=== PATIENT | male | born 1985 | race Caucasian/White ===

== ENCOUNTER 2022-02-09 15:26 | Inpatient (IN) | payer SELFPAY ==
[~2022-02-09 15:26] MED LIST: Iopamidol 370 76% 50 ML VIAL FS ONE
[2022-02-09] MEDS ORDERED: Succinylcholine 200 MG/10 ml SYRINGE FS ONE (15:33)
[2022-02-09] MEDS ORDERED: Propofol 1,000 MG/100 ML VIAL IV ONE (15:39)
[2022-02-09 15:45] LABS: #Lymphocytes 0.3 thou/uL (1.20-3.40); #Monocytes 0.3 thou/uL (0.11-0.59); #Neutrophils 1.3 thou/uL (1.40-6.50); %Eosinophils 0.2 % (0.0-10.0); %Lymphocytes 14.5 % (21.0-51.0); %Monocytes 14.4 % (0.0-10.0); %Neutrophils 70.9 % (42.0-75.0); Hemoglobin 14.6 g/dL (14.0-18.0); Mean Corpuscular HGB CONC 30.8 g/dL (32.0-36.0); Mean Corpuscular Hemoglobin 30.9 pg (27.0-31.0); Platelet Count 457 thou/uL (130-400); RBC Distribution Width 12.7 % (11.5-14.5); Red Blood Cell (RBC) Count 4.73 mill/uL (4.70-6.10); White Blood Cell (WBC) Count 1.9 thou/uL (4.8-10.8)
[2022-02-09] MEDS ORDERED: Norepinephrine 8 MG/0.9% NS 250 ML ONE (15:49)
[2022-02-09 15:53] LABS: INR-International Normal Ratio 1.2; PTT 40.2 sec (22.9-36.1); Prothrombin Time 15.6 sec (12.0-14.7)
[2022-02-09] MEDS ORDERED: Midazolam HCl 2 mg/2 ml Vial ONE (15:58)
[2022-02-09 16:04] LABS: ALT (SGPT) 10 U/L (8-55); AST (SGOT) 15 U/L (5-34); Albumin 2.3 g/dL (3.5-5.0); Alkaline Phosphatase 99 U/L (40-110); Anion Gap 17 mmol/L (10-20); BUN (Urea Nitrogen) 17 mg/dL (8.9-20.6); Bilirubin, Total 0.7 mg/dL (0.2-1.2); Calc. Creatinine Clearance 0 mL/min (70-130); Calcium 7.8 mg/dL (7.8-10.44); Carbon Dioxide 15 mmol/L (22-29); Chloride 103 mmol/L (98-107); Globulin 3.8 g/dL (2.4-3.5); Glucose 166 mg/dL (70-105); Potassium 3.9 mmol/L (3.5-5.1); Protein, Total 6.1 g/dL (6.0-8.3); Sodium 131 mmol/L (136-145)
[2022-02-09 16:06] LABS: Actual Bicarbonate (HCO3a) 20.5 mEq/L (22-28); Analyzer IN Cardio ER; Base Excess (BEa) -9.8 mEq/L (-2.0 to +3.0); Calcium, Ionized (arterial) 1.13 mmol/L (1.12-1.30); Carboxyhemoglobin (COHb) 0.8 gm% (0.0-3.0); Hemoglobin (Hb) 14.4 g/dL (14.0-18.0); Potassium - ABG Lab 3.95 mmol/L (3.70-5.30)
[2022-02-09 16:07] LABS: CO2 Tension 64.6 mmHg (35.0-45.0); pH, Arterial 7.12 (7.35-7.45)
[2022-02-09 16:08] LABS: Puncture Site RRA
[2022-02-09 16:14] LABS: MDiff Complete? YES; Platelet Morphology Comment Appears Increased; Polychromasia SLIGHT = 2-3 cells (100X) (0-2/hpf); Reflex for Review?? YES
[2022-02-09] MEDS ORDERED: Hydrocortisone Sod Succ/PF 100 mg/2 ml Vial ONE (16:47)
[2022-02-09] MEDS ORDERED: Midazolam HCl 5 mg/ml Vial ONE (17:03)
[2022-02-09] MEDS ORDERED: Ventilator Sedation Protocol 1 EACH FS SCH (17:15)
[2022-02-09] MEDS ORDERED: Propofol BOLUS 1,000 MG/100 ML VIAL IV PRN (17:30)
[2022-02-09] MEDS ORDERED: DISCONTINUE PREVIOUS NARCOTIC PAIN MEDICATIONS AND BENZODIAZEPINES FS SCH (17:30)
[2022-02-09] MEDS ORDERED: Piperacillin/Tazobactam 3.375 GM in Sodium Chloride 0.9% 100 ML IVPB SCH ×2 (17:30→18:00)
[2022-02-09] MEDS ORDERED: Fentanyl BOLUS 250 ML IVPB PRN (17:30)
[2022-02-09 17:39] LABS: Actual Bicarbonate (HCO3a) 18.1 mEq/L (22-28); Base Excess (BEa) -11.6 mEq/L (-2.0 to +3.0); CO2 Tension 57.4 mmHg (35.0-45.0); Calcium, Ionized (arterial) 1.07 mmol/L (1.12-1.30); Carboxyhemoglobin (COHb) 1.2 gm% (0.0-3.0); Hemoglobin (Hb) 12.8 g/dL (14.0-18.0); Potassium - ABG Lab 3.44 mmol/L (3.70-5.30)
[2022-02-09 17:41] LABS: Puncture Site LRA; pH, Arterial 7.12 (7.35-7.45)
[2022-02-09] MEDS: Sodium Bicarbonate 150 MEQ in Dextrose 5% in Water 1,000 ML IV SCH (17:45)
[2022-02-09 19:33] LABS: Lactic Acid 3.1 mmol/L (0.5-2.2)
[2022-02-09] MEDS: Famotidine/PF 20 mg/2ml Vial SLOW IVP SCH (20:43)
[2022-02-09] MEDS: Vancomycin HCl 1.5 GM in Sodium Chloride 0.9% 250 ML 300 ML IVPB SCH (20:43)
[2022-02-09] MEDS: Piperacillin/Tazobactam 3.375 GM in Sodium Chloride 0.9% 100 ML IVPB SCH (23:32)
[2022-02-09] MEDS: Hydrocortisone Sod Succ/PF 100 mg/2 ml Vial IVP SCH (23:32)
[2022-02-09] MEDS: Norepinephrine 8 MG/0.9% NS 250 ML IVPB PRN (23:32)
[2022-02-10] MEDS: Insulin Regular 300 UNITS/3 ML VIAL SC PRN (00:16)
[2022-02-10] MEDS: fentaNYL Citrate-0.9 % NaCl/PF 100 ML IVPB SCH ×2 (01:25→18:12)
[2022-02-10] MEDS: Sodium Bicarbonate 150 MEQ in Dextrose 5% in Water 1,000 ML IV SCH ×2 (03:42→13:27)
[2022-02-10 04:51] LABS: ALT (SGPT) 14 U/L (8-55); AST (SGOT) 26 U/L (5-34); Alkaline Phosphatase 70 U/L (40-110); Anion Gap 15 mmol/L (10-20); BUN (Urea Nitrogen) 15 mg/dL (8.9-20.6); Bilirubin, Total 0.4 mg/dL (0.2-1.2); Calc. Creatinine Clearance 126 mL/min (70-130); Calcium 7.9 mg/dL (7.8-10.44); Carbon Dioxide 24 mmol/L (22-29); Chloride 102 mmol/L (98-107); Globulin 3.2 g/dL (2.4-3.5); Glucose 182 mg/dL (70-105); Potassium 3.8 mmol/L (3.5-5.1); Protein, Total 5.2 g/dL (6.0-8.3); Sodium 137 mmol/L (136-145)
[2022-02-10] MEDS: Hydrocortisone Sod Succ/PF 100 mg/2 ml Vial IVP SCH ×4 (05:37→22:24)
[2022-02-10] MEDS: Piperacillin/Tazobactam 3.375 GM in Sodium Chloride 0.9% 100 ML IVPB SCH ×3 (05:37→22:23)
[2022-02-10 05:45] LABS: Band 69 % (5-11); Hemoglobin 12.6 g/dL (14.0-18.0); Hypochromia SLIGHT = 6-15 cells (100X) (0-5/hpf); Lymphocytes 8 % (21-51); MDiff Complete? YES; Macrocytosis MODERATE=16-30 cells (100X) (0-5/hpf); Mean Corpuscular HGB CONC 30.8 g/dL (32.0-36.0); Mean Corpuscular Hemoglobin 31.1 pg (27.0-31.0); Mean Platelet Volume 7.7 fL (7.4-10.4); Metamyelocyte 12 % (0-0); Monocytes 2 % (0-10); Myelocyte 7 % (0-0); Neutrophil 1 % (42-75); Platelet Count 178 thou/uL (130-400); Platelet Morphology Comment Appears Adequate; Polychromasia SLIGHT = 2-3 cells (100X) (0-2/hpf); Promyelocytes 1 % (0-0); RBC Distribution Width 12.6 % (11.5-14.5); Red Blood Cell (RBC) Count 4.06 mill/uL (4.70-6.10); Reflex for Review?? NO; Target Cells SLIGHT = 2-5 cells (100X) (0-1/hpf)
[2022-02-10] MEDS: Propofol 1,000 MG/100 ML VIAL IV PRN ×2 (05:46→18:16)
[2022-02-10] MEDS: Norepinephrine 8 MG/0.9% NS 250 ML IVPB PRN (05:46)
[2022-02-10 07:27] LABS: Actual Bicarbonate (HCO3a) 29.2 mEq/L (22-28); Base Excess (BEa) 0.4 mEq/L (-2.0 to +3.0); Calcium, Ionized (arterial) 1.12 mmol/L (1.12-1.30); Carboxyhemoglobin (COHb) 0.9 gm% (0.0-3.0); Hemoglobin (Hb) 13.1 g/dL (14.0-18.0); Potassium - ABG Lab 3.85 mmol/L (3.70-5.30)
[2022-02-10 07:28] LABS: pH, Arterial 7.25 (7.35-7.45)
[2022-02-10 07:29] LABS: ALV-art Gradient 541.725 mmHg (0-20); CO2 Tension 67.7 mmHg (35.0-45.0); Puncture Site Arterial Line
[2022-02-10] MEDS ORDERED: Enoxaparin Sodium 40 MG/0.4 ML SYRINGE SC SCH (09:00)
[2022-02-10] MEDS ORDERED: fentaNYL Citrate/PF 100 MCG/2 ML SYRINGE ONE (09:15)
[2022-02-10] MEDS ORDERED: Bupivacaine PF 0.5% 30 ML VIAL ONE (09:25)
[2022-02-10] MEDS ORDERED: EPINEPHrine 1 MG/ML AMP ONE (09:25)
[2022-02-10] MEDS: Famotidine/PF 20 mg/2ml Vial SLOW IVP SCH ×2 (09:45→20:20)
[2022-02-10] MEDS: Vancomycin HCl 1.5 GM in Sodium Chloride 0.9% 250 ML 300 ML IVPB SCH ×2 (10:07→22:19)
[2022-02-10] MEDS ORDERED: Rocuronium Bromide 10 MG/ML (10ML VIAL) ONE (10:16)
[2022-02-10] MEDS ORDERED: PROPOFOL 200 MG/20 ML VIAL ONE (10:16)
[2022-02-10] MEDS ORDERED: Lidocaine 1% PF 5 ML VIAL ONE (10:16)
[2022-02-10 12:06] LABS: Actual Bicarbonate (HCO3a) 28.1 mEq/L (22-28); Base Excess (BEa) -1.7 mEq/L (-2.0 to +3.0); Calcium, Ionized (arterial) 1.06 mmol/L (1.12-1.30); Carboxyhemoglobin (COHb) 1.3 gm% (0.0-3.0); Potassium - ABG Lab 3.83 mmol/L (3.70-5.30)
[2022-02-10 12:08] LABS: CO2 Tension 74.8 mmHg (35.0-45.0); O2 Tension (PaO2), arterial 58.8 mmHg (80.0-100.0); Puncture Site Arterial Line; pH, Arterial 7.19 (7.35-7.45)
[2022-02-10 14:11] LABS: Amphetamine Not Detected (NotDetected); Barbiturates Screen Not Detected (NotDetected); Benzodiazepine Screen Not Detected (NotDetected); Cocaine Metabolite Screen Not Detected (NotDetected); Methadone Not Detected (NotDetected); Methamphetamine Not Detected (NotDetected); Opiate Screen Not Detected (NotDetected); Oxycodone Screen Not Detected (NotDetected); Phencyclidine (PCP) Not Detected (NotDetected); THC/Cannabinoid Screen Detected (NotDetected); Tricyclic Screen Not Detected (NotDetected)
[2022-02-10] MEDS ORDERED: Lactated Ringer's 500 ML IV SCH (16:30)
[2022-02-11] MEDS: Insulin Regular 300 UNITS/3 ML VIAL SC PRN ×4 (00:19→22:17)
[2022-02-11] MEDS: Norepinephrine 8 MG/0.9% NS 250 ML IVPB PRN (02:07)
[2022-02-11] MEDS: Sodium Bicarbonate 150 MEQ in Dextrose 5% in Water 1,000 ML IV SCH (02:33)
[2022-02-11 04:46] LABS: ALT (SGPT) 26 U/L (8-55); AST (SGOT) 45 U/L (5-34); Albumin 1.7 g/dL (3.5-5.0); Alkaline Phosphatase 66 U/L (40-110); Anion Gap 15 mmol/L (10-20); BUN (Urea Nitrogen) 17 mg/dL (8.9-20.6); Bilirubin, Total 0.3 mg/dL (0.2-1.2); Calc. Creatinine Clearance 124 mL/min (70-130); Calcium 7.3 mg/dL (7.8-10.44); Carbon Dioxide 29 mmol/L (22-29); Chloride 97 mmol/L (98-107); Globulin 2.9 g/dL (2.4-3.5); Glucose 253 mg/dL (70-105); Potassium 3.7 mmol/L (3.5-5.1); Protein, Total 4.6 g/dL (6.0-8.3); Sodium 137 mmol/L (136-145)
[2022-02-11 05:11] LABS: Band 60 % (5-11); MDiff Complete? YES; Mean Corpuscular HGB CONC 33.1 g/dL (32.0-36.0); Mean Corpuscular Hemoglobin 33.4 pg (27.0-31.0); Mean Platelet Volume 8.7 fL (7.4-10.4); Metamyelocyte 2 % (0-0); Monocytes 6 % (0-10); Neutrophil 31 % (42-75); Nucleated RBC 1 % (0); Platelet Count 48 thou/uL (130-400); Platelet Morphology Comment Appears Decreased; RBC Distribution Width 12.8 % (11.5-14.5); RBC Morphology Normal; Reactive Lymphocytes 1 % (0-10); White Blood Cell (WBC) Count 15.5 thou/uL (4.8-10.8)
[2022-02-11] MEDS: Propofol 1,000 MG/100 ML VIAL IV PRN ×2 (05:49→16:05)
[2022-02-11] MEDS: Hydrocortisone Sod Succ/PF 100 mg/2 ml Vial IVP SCH ×4 (05:49→22:15)
[2022-02-11] MEDS: Piperacillin/Tazobactam 3.375 GM in Sodium Chloride 0.9% 100 ML IVPB SCH ×3 (05:50→22:01)
[2022-02-11 07:06] LABS: Actual Bicarbonate (HCO3a) 31.2 mEq/L (22-28); Base Excess (BEa) 7.4 mEq/L (-2.0 to +3.0); CO2 Tension 40.7 mmHg (35.0-45.0); Calcium, Ionized (arterial) 0.98 mmol/L (1.12-1.30); Carboxyhemoglobin (COHb) 0.5 gm% (0.0-3.0); Hemoglobin (Hb) 10.1 g/dL (14.0-18.0); Potassium - ABG Lab 3.51 mmol/L (3.70-5.30)
[2022-02-11 07:09] LABS: ALV-art Gradient 300.925 mmHg (0-20); Puncture Site Arterial Line
[2022-02-11] MEDS: fentaNYL Citrate-0.9 % NaCl/PF 100 ML IVPB SCH (08:13)
[2022-02-11 08:52] LABS: Vancomycin, Trough 14.5 ug/mL
[2022-02-11] MEDS: Insulin Glargine 30 UNITS/0.3 ML VIAL SC SCH (09:15)
[2022-02-11] MEDS: Vancomycin HCl 1.5 GM in Sodium Chloride 0.9% 250 ML 300 ML IVPB SCH (09:15)
[2022-02-11] MEDS: Famotidine/PF 20 mg/2ml Vial SLOW IVP SCH ×2 (09:15→21:32)
[2022-02-11 10:08] LABS: Magnesium 2.2 mg/dL (1.6-2.6)
[2022-02-11] MEDS: Vancomycin 1.5 GRAM/300 ML BAG 1.5 GM in Premix Bag 1 BAG IVPB SCH (21:36)
[2022-02-11] MEDS: Lorazepam 2 MG/ML VIAL SLOW IVP PRN (22:05)
[2022-02-12] MEDS: fentaNYL Citrate-0.9 % NaCl/PF 100 ML IVPB SCH ×2 (00:14→16:41)
[2022-02-12 04:20] LABS: Mean Corpuscular HGB CONC 31.6 g/dL (32.0-36.0); Mean Corpuscular Hemoglobin 31.6 pg (27.0-31.0); Mean Platelet Volume 9.2 fL (7.4-10.4); Platelet Count 37 thou/uL (130-400); RBC Distribution Width 12.7 % (11.5-14.5); Red Blood Cell (RBC) Count 2.86 mill/uL (4.70-6.10)
[2022-02-12 04:39] LABS: ALT (SGPT) 30 U/L (8-55); AST (SGOT) 58 U/L (5-34); Albumin 1.9 g/dL (3.5-5.0); Alkaline Phosphatase 103 U/L (40-110); Anion Gap 11 mmol/L (10-20); BUN (Urea Nitrogen) 34 mg/dL (8.9-20.6); Bilirubin, Total 0.4 mg/dL (0.2-1.2); Calc. Creatinine Clearance 131 mL/min (70-130); Calcium 7.7 mg/dL (7.8-10.44); Carbon Dioxide 34 mmol/L (22-29); Chloride 98 mmol/L (98-107); Globulin 2.9 g/dL (2.4-3.5); Glucose 181 mg/dL (70-105); Potassium 3.6 mmol/L (3.5-5.1); Protein, Total 4.8 g/dL (6.0-8.3); Sodium 139 mmol/L (136-145)
[2022-02-12 05:07] LABS: Band 58 % (5-11); Lymphocytes 3 % (21-51); MDiff Complete? YES; Monocytes 1 % (0-10); Myelocyte 1 % (0-0); Neutrophil 37 % (42-75); Platelet Morphology Comment Appears Decreased
[2022-02-12] MEDS: Piperacillin/Tazobactam 3.375 GM in Sodium Chloride 0.9% 100 ML IVPB SCH ×3 (05:59→21:59)
[2022-02-12] MEDS: Hydrocortisone Sod Succ/PF 100 mg/2 ml Vial IVP SCH ×3 (05:59→17:45)
[2022-02-12] MEDS: Insulin Regular 300 UNITS/3 ML VIAL SC PRN ×2 (05:59→16:24)
[2022-02-12] MEDS: Propofol 1,000 MG/100 ML VIAL IV PRN ×2 (06:10→09:45)
[2022-02-12 07:27] LABS: Actual Bicarbonate (HCO3a) 33.1 mEq/L (22-28); Base Excess (BEa) 8.4 mEq/L (-2.0 to +3.0); CO2 Tension 47.1 mmHg (35.0-45.0); Calcium, Ionized (arterial) 1.02 mmol/L (1.12-1.30); Carboxyhemoglobin (COHb) 0.3 gm% (0.0-3.0); O2 Tension (PaO2), arterial 76.1 mmHg (80.0-100.0); Potassium - ABG Lab 3.16 mmol/L (3.70-5.30); pH, Arterial 7.47 (7.35-7.45)
[2022-02-12 07:33] LABS: ALV-art Gradient 150.225 mmHg (0-20); Puncture Site Arterial Line
[2022-02-12] MEDS: Lorazepam 2 MG/ML VIAL SLOW IVP PRN (09:45)
[2022-02-12] MEDS: Famotidine/PF 20 mg/2ml Vial SLOW IVP SCH (09:53)
[2022-02-12] MEDS: Insulin Glargine 30 UNITS/0.3 ML VIAL SC SCH (09:53)
[2022-02-12] MEDS: Vancomycin 1.5 GRAM/300 ML BAG 1.5 GM in Premix Bag 1 BAG IVPB SCH ×2 (10:31→23:05)
[2022-02-12] MEDS: Sucralfate 1 GM/10 ML UDCUP PER TUBE SCH (17:46)
[2022-02-12 21:13] LABS: Vancomycin, Trough 48.5 ug/mL
[2022-02-12] MEDS ORDERED: Vancomycin 1.5 GRAM/300 ML BAG 1.5 GM in Premix Bag 1 BAG IVPB SCH (21:45)
[2022-02-12 22:28] LABS: Vancomycin, Trough 36.6 ug/mL
[2022-02-13] MEDS: Hydrocortisone Sod Succ/PF 100 mg/2 ml Vial IVP SCH ×3 (00:01→10:35)
[2022-02-13] MEDS: Sucralfate 1 GM/10 ML UDCUP PER TUBE SCH ×5 (00:02→23:46)
[2022-02-13 02:41] LABS: Vancomycin, Random 24.7 ug/mL (See Comment)
[2022-02-13 04:54] LABS: ALT (SGPT) 30 U/L (8-55); AST (SGOT) 45 U/L (5-34); Alkaline Phosphatase 144 U/L (40-110); Anion Gap 12 mmol/L (10-20); BUN (Urea Nitrogen) 30 mg/dL (8.9-20.6); Bilirubin, Total 0.3 mg/dL (0.2-1.2); Calc. Creatinine Clearance 132 mL/min (70-130); Calcium 7.7 mg/dL (7.8-10.44); Carbon Dioxide 34 mmol/L (22-29); Chloride 100 mmol/L (98-107); Glucose 152 mg/dL (70-105); Potassium 3.6 mmol/L (3.5-5.1); Sodium 142 mmol/L (136-145)
[2022-02-13] MEDS: fentaNYL Citrate-0.9 % NaCl/PF 100 ML IVPB SCH ×2 (04:55→16:28)
[2022-02-13] MEDS: Piperacillin/Tazobactam 3.375 GM in Sodium Chloride 0.9% 100 ML IVPB SCH ×3 (05:03→22:02)
[2022-02-13] MEDS: Insulin Regular 300 UNITS/3 ML VIAL SC PRN ×2 (05:23→16:25)
[2022-02-13 05:59] LABS: Hemoglobin 8.7 g/dL (14.0-18.0); Mean Corpuscular HGB CONC 31.5 g/dL (32.0-36.0); Mean Corpuscular Hemoglobin 31.2 pg (27.0-31.0); Mean Platelet Volume 9.9 fL (7.4-10.4); Platelet Count 47 thou/uL (130-400); RBC Distribution Width 12.8 % (11.5-14.5); Red Blood Cell (RBC) Count 2.78 mill/uL (4.70-6.10); White Blood Cell (WBC) Count 13.1 thou/uL (4.8-10.8)
[2022-02-13 06:04] LABS: Band 21 % (5-11); Lymphocytes 8 % (21-51); MDiff Complete? YES; Monocytes 4 % (0-10); Neutrophil 67 % (42-75); Platelet Morphology Comment Appears Decreased
[2022-02-13 07:21] LABS: Base Excess (BEa) 10.9 mEq/L (-2.0 to +3.0); CO2 Tension 45.2 mmHg (35.0-45.0); Calcium, Ionized (arterial) 1.13 mmol/L (1.12-1.30); Carboxyhemoglobin (COHb) 0.4 gm% (0.0-3.0); Hemoglobin (Hb) 8.6 g/dL (14.0-18.0); O2 Tension (PaO2), arterial 62.7 mmHg (80.0-100.0); Potassium - ABG Lab 3.19 mmol/L (3.70-5.30); pH, Arterial 7.51 (7.35-7.45)
[2022-02-13 07:36] LABS: Puncture Site RRA
[2022-02-13] MEDS: Insulin Glargine 30 UNITS/0.3 ML VIAL SC SCH (09:57)
[2022-02-13] MEDS: Lorazepam 2 MG/ML VIAL SLOW IVP PRN ×3 (10:24→18:05)
[2022-02-13 12:18] LABS: Vancomycin, Random 12.9 ug/mL (See Comment)
[2022-02-13] MEDS ORDERED: VANCOMYCIN 1.25 GM/250 ML BAG 1.25 GM in Premix Bag 1 BAG IVPB SCH (13:00)
[2022-02-13 14:13] LABS: Heparin-Induced Ab (HITA) 0.07 OD (0.000-0.400)
[2022-02-13] MEDS: Propofol 1,000 MG/100 ML VIAL IV PRN ×2 (14:13→22:32)
[2022-02-14] MEDS ORDERED: VANCOMYCIN 1.25 GM/250 ML BAG 1.25 GM in Premix Bag 1 BAG IVPB SCH (01:00)
[2022-02-14] MEDS: Lorazepam 2 MG/ML VIAL SLOW IVP PRN ×3 (02:41→18:33)
[2022-02-14] MEDS: fentaNYL Citrate-0.9 % NaCl/PF 100 ML IVPB SCH ×2 (03:15→16:56)
[2022-02-14] MEDS: Piperacillin/Tazobactam 3.375 GM in Sodium Chloride 0.9% 100 ML IVPB SCH ×3 (04:57→21:06)
[2022-02-14] MEDS: Sucralfate 1 GM/10 ML UDCUP PER TUBE SCH ×3 (04:58→18:03)
[2022-02-14] MEDS: Vancomycin 1 GM in Premix Bag 1 BAG IVPB SCH ×2 (04:58→16:45)
[2022-02-14 05:27] LABS: Mean Corpuscular HGB CONC 32.2 g/dL (32.0-36.0); Mean Corpuscular Hemoglobin 31.8 pg (27.0-31.0); Mean Corpuscular Volume 98.8 fL (78.0-98.0); Mean Platelet Volume 9.8 fL (7.4-10.4); Platelet Count 96 thou/uL (130-400); Red Blood Cell (RBC) Count 2.83 mill/uL (4.70-6.10); White Blood Cell (WBC) Count 17.1 thou/uL (4.8-10.8)
[2022-02-14 05:44] LABS: ALT (SGPT) 29 U/L (8-55); AST (SGOT) 43 U/L (5-34); Albumin 2.2 g/dL (3.5-5.0); Alkaline Phosphatase 171 U/L (40-110); Anion Gap 11 mmol/L (10-20); BUN (Urea Nitrogen) 26 mg/dL (8.9-20.6); Bilirubin, Total 0.3 mg/dL (0.2-1.2); Calc. Creatinine Clearance 131 mL/min (70-130); Carbon Dioxide 35 mmol/L (22-29); Chloride 103 mmol/L (98-107); Glucose 105 mg/dL (70-105); Protein, Total 5.2 g/dL (6.0-8.3); Sodium 146 mmol/L (136-145)
[2022-02-14 06:10] LABS: Band 15 % (5-11); Lymphocytes 10 % (21-51); MDiff Complete? YES; Metamyelocyte 2 % (0-0); Monocytes 4 % (0-10); Myelocyte 1 % (0-0); Neutrophil 68 % (42-75); Platelet Morphology Comment Appears Decreased
[2022-02-14 06:13] LABS: Potassium 2.6 mmol/L (3.5-5.1)
[2022-02-14 07:22] LABS: Actual Bicarbonate (HCO3a) 32.9 mEq/L (22-28); CO2 Tension 46.1 mmHg (35.0-45.0); Calcium, Ionized (arterial) 1.16 mmol/L (1.12-1.30); Hemoglobin (Hb) 14.5 g/dL (14.0-18.0); Potassium - ABG Lab 2.68 mmol/L (3.70-5.30); pH, Arterial 7.47 (7.35-7.45)
[2022-02-14 07:24] LABS: ALV-art Gradient 170.575 mmHg (0-20); Puncture Site RRA
[2022-02-14] MEDS: Propofol 1,000 MG/100 ML VIAL IV PRN ×2 (08:18→16:45)
[2022-02-14] MEDS ORDERED: Potassium Chloride 40 MEQ in Premix Bag 1 BAG IVPB SCH ×2 (09:15→18:30)
[2022-02-14] MEDS: Insulin Glargine 30 UNITS/0.3 ML VIAL SC SCH (09:56)
[2022-02-14 17:55] LABS: Potassium 2.9 mmol/L (3.5-5.1)
[2022-02-15] MEDS: Sucralfate 1 GM/10 ML UDCUP PER TUBE SCH ×4 (00:24→17:28)
[2022-02-15] MEDS: Propofol 1,000 MG/100 ML VIAL IV PRN ×4 (01:12→22:32)
[2022-02-15 05:00] LABS: ALT (SGPT) 29 U/L (8-55); AST (SGOT) 35 U/L (5-34); Albumin 2.2 g/dL (3.5-5.0); Alkaline Phosphatase 135 U/L (40-110); Anion Gap 11 mmol/L (10-20); BUN (Urea Nitrogen) 19 mg/dL (8.9-20.6); Bilirubin, Total 0.4 mg/dL (0.2-1.2); Calc. Creatinine Clearance 133 mL/min (70-130); Calcium 8.3 mg/dL (7.8-10.44); Carbon Dioxide 34 mmol/L (22-29); Chloride 102 mmol/L (98-107); Glucose 99 mg/dL (70-105); Protein, Total 5.2 g/dL (6.0-8.3); Sodium 144 mmol/L (136-145); Vancomycin, Trough 14.4 ug/mL
[2022-02-15] MEDS: Vancomycin 1 GM in Premix Bag 1 BAG IVPB SCH ×2 (05:13→17:28)
[2022-02-15] MEDS: Piperacillin/Tazobactam 3.375 GM in Sodium Chloride 0.9% 100 ML IVPB SCH ×3 (05:13→22:13)
[2022-02-15] MEDS: fentaNYL Citrate-0.9 % NaCl/PF 100 ML IVPB SCH ×2 (05:42→17:29)
[2022-02-15 06:38] LABS: Band 17 % (5-11); Hemoglobin 9.5 g/dL (14.0-18.0); Lymphocytes 9 % (21-51); MDiff Complete? YES; Mean Corpuscular HGB CONC 32.5 g/dL (32.0-36.0); Mean Corpuscular Hemoglobin 32.1 pg (27.0-31.0); Mean Corpuscular Volume 98.9 fL (78.0-98.0); Mean Platelet Volume 9.6 fL (7.4-10.4); Myelocyte 3 % (0-0); Neutrophil 71 % (42-75); Platelet Count 155 thou/uL (130-400); RBC Distribution Width 13.1 % (11.5-14.5); Red Blood Cell (RBC) Count 2.95 mill/uL (4.70-6.10); White Blood Cell (WBC) Count 20.5 thou/uL (4.8-10.8)
[2022-02-15 07:02] LABS: Base Excess (BEa) 9.5 mEq/L (-2.0 to +3.0); CO2 Tension 45.9 mmHg (35.0-45.0); Calcium, Ionized (arterial) 1.16 mmol/L (1.12-1.30); Hemoglobin (Hb) 9.5 g/dL (14.0-18.0); O2 Tension (PaO2), arterial 70.1 mmHg (80.0-100.0); Potassium - ABG Lab 2.73 mmol/L (3.70-5.30); pH, Arterial 7.49 (7.35-7.45)
[2022-02-15 07:26] LABS: ALV-art Gradient 157.725 mmHg (0-20); Puncture Site RRA
[2022-02-15] MEDS ORDERED: Electrolyte Replacement Protocol 1 EACH FS PRN (09:27)
[2022-02-15] MEDS ORDERED: Potassium Chloride 40 MEQ in Sodium Chloride 0.9% 250 ML 250 ML IVPB SCH (09:45)
[2022-02-15] MEDS: Insulin Glargine 30 UNITS/0.3 ML VIAL SC SCH (10:44)
[2022-02-15] MEDS: Lorazepam 2 MG/ML VIAL SLOW IVP PRN (17:28)
[2022-02-15] MEDS: Famotidine/PF 20 mg/2ml Vial SLOW IVP SCH (22:14)
[2022-02-16] MEDS: Sucralfate 1 GM/10 ML UDCUP PER TUBE SCH ×2 (00:07→05:34)
[2022-02-16 05:05] LABS: Hemoglobin 9.1 g/dL (14.0-18.0); Mean Corpuscular HGB CONC 31.6 g/dL (32.0-36.0); Mean Corpuscular Hemoglobin 31.2 pg (27.0-31.0); Mean Corpuscular Volume 98.7 fL (78.0-98.0); Mean Platelet Volume 9.2 fL (7.4-10.4); Platelet Count 229 thou/uL (130-400); RBC Distribution Width 13.3 % (11.5-14.5); Red Blood Cell (RBC) Count 2.91 mill/uL (4.70-6.10); White Blood Cell (WBC) Count 19.3 thou/uL (4.8-10.8)
[2022-02-16 05:22] LABS: ALT (SGPT) 54 U/L (8-55); AST (SGOT) 62 U/L (5-34); Alkaline Phosphatase 190 U/L (40-110); Anion Gap 10 mmol/L (10-20); BUN (Urea Nitrogen) 13 mg/dL (8.9-20.6); Bilirubin, Total 0.4 mg/dL (0.2-1.2); Calc. Creatinine Clearance 153 mL/min (70-130); Carbon Dioxide 33 mmol/L (22-29); Chloride 103 mmol/L (98-107); Globulin 2.9 g/dL (2.4-3.5); Glucose 88 mg/dL (70-105); Protein, Total 4.9 g/dL (6.0-8.3); Sodium 143 mmol/L (136-145)
[2022-02-16 05:31] LABS: Potassium 2.8 mmol/L (3.5-5.1)
[2022-02-16] MEDS: fentaNYL Citrate-0.9 % NaCl/PF 100 ML IVPB SCH ×2 (05:33→17:07)
[2022-02-16] MEDS: Vancomycin 1 GM in Premix Bag 1 BAG IVPB SCH ×2 (05:34→17:04)
[2022-02-16] MEDS: Piperacillin/Tazobactam 3.375 GM in Sodium Chloride 0.9% 100 ML IVPB SCH ×3 (05:35→21:00)
[2022-02-16] MEDS: Propofol 1,000 MG/100 ML VIAL IV PRN ×3 (05:39→18:25)
[2022-02-16 05:40] LABS: Band 4 % (5-11); Eosinophils 3 % (0-10); Lymphocytes 7 % (21-51); MDiff Complete? YES; Monocytes 2 % (0-10); Myelocyte 2 % (0-0); Neutrophil 82 % (42-75)
[2022-02-16 07:15] LABS: Actual Bicarbonate (HCO3a) 26.9 mEq/L (22-28); Base Excess (BEa) 4.3 mEq/L (-2.0 to +3.0); CO2 Tension 33.2 mmHg (35.0-45.0); Calcium, Ionized (arterial) 1.12 mmol/L (1.12-1.30); Carboxyhemoglobin (COHb) 1.6 gm% (0.0-3.0); Hemoglobin (Hb) 10.5 g/dL (14.0-18.0); Potassium - ABG Lab 2.93 mmol/L (3.70-5.30); pH, Arterial 7.53 (7.35-7.45)
[2022-02-16 07:39] LABS: O2 Tension (PaO2), arterial 53.2 mmHg (80.0-100.0)
[2022-02-16 07:40] LABS: Puncture Site RRA
[2022-02-16] MEDS: Potassium Chloride 40 MEQ in Premix Bag 1 BAG IVPB SCH ×2 (08:04→11:46)
[2022-02-16] MEDS: Famotidine/PF 20 mg/2ml Vial SLOW IVP SCH ×2 (08:04→20:56)
[2022-02-16] MEDS: Insulin Glargine 30 UNITS/0.3 ML VIAL SC SCH (08:11)
[2022-02-16] MEDS ORDERED: Bupivacaine PF 0.5% 30 ML VIAL ONE (08:17)
[2022-02-16] MEDS ORDERED: EPINEPHrine 1 MG/ML AMP ONE (08:17)
[2022-02-16] MEDS ORDERED: PROPOFOL 200 MG/20 ML VIAL ONE (08:51)
[2022-02-16] MEDS ORDERED: Rocuronium Bromide 10 MG/ML (10ML VIAL) ONE (08:51)
[2022-02-16] MEDS: Morphine 4 MG/ML VIAL SLOW IVP PRN (13:16)
[2022-02-16] MEDS: Lorazepam 2 MG/ML VIAL SLOW IVP PRN (16:11)
[2022-02-16 16:25] LABS: Vancomycin, Trough 12.8 ug/mL
[2022-02-16 18:09] LABS: Potassium 3.8 mmol/L (3.5-5.1)
[2022-02-17] MEDS: Propofol 1,000 MG/100 ML VIAL IV PRN ×2 (02:22→08:58)
[2022-02-17] MEDS: Lorazepam 2 MG/ML VIAL SLOW IVP PRN ×2 (02:41→12:02)
[2022-02-17] MEDS: fentaNYL Citrate-0.9 % NaCl/PF 100 ML IVPB SCH ×2 (04:17→19:46)
[2022-02-17] MEDS: Piperacillin/Tazobactam 3.375 GM in Sodium Chloride 0.9% 100 ML IVPB SCH ×3 (05:03→22:04)
[2022-02-17] MEDS: VANCOMYCIN 1.25 GM/250 ML BAG 1.25 GM in Premix Bag 1 BAG IVPB SCH ×2 (05:50→17:19)
[2022-02-17 06:45] LABS: Hemoglobin 9.7 g/dL (14.0-18.0); Mean Corpuscular HGB CONC 31.7 g/dL (32.0-36.0); Mean Corpuscular Hemoglobin 31.1 pg (27.0-31.0); Mean Platelet Volume 8.5 fL (7.4-10.4); Platelet Count 340 thou/uL (130-400); RBC Distribution Width 13.5 % (11.5-14.5); Red Blood Cell (RBC) Count 3.12 mill/uL (4.70-6.10); White Blood Cell (WBC) Count 18.3 thou/uL (4.8-10.8)
[2022-02-17 07:05] LABS: ALT (SGPT) 47 U/L (8-55); AST (SGOT) 39 U/L (5-34); Alkaline Phosphatase 186 U/L (40-110); Anion Gap 11 mmol/L (10-20); BUN (Urea Nitrogen) 9 mg/dL (8.9-20.6); Bilirubin, Total 0.4 mg/dL (0.2-1.2); Calc. Creatinine Clearance 138 mL/min (70-130); Calcium 7.5 mg/dL (7.8-10.44); Carbon Dioxide 27 mmol/L (22-29); Chloride 104 mmol/L (98-107); Globulin 3.2 g/dL (2.4-3.5); Glucose 126 mg/dL (70-105); Potassium 3.3 mmol/L (3.5-5.1); Protein, Total 5.2 g/dL (6.0-8.3); Sodium 139 mmol/L (136-145)
[2022-02-17 07:06] LABS: Actual Bicarbonate (HCO3a) 29.2 mEq/L (22-28); Base Excess (BEa) 5.8 mEq/L (-2.0 to +3.0); CO2 Tension 37.8 mmHg (35.0-45.0); Calcium, Ionized (arterial) 1.09 mmol/L (1.12-1.30); Hemoglobin (Hb) 9.8 g/dL (14.0-18.0); Potassium - ABG Lab 3.13 mmol/L (3.70-5.30); pH, Arterial 7.51 (7.35-7.45)
[2022-02-17 07:16] LABS: O2 Tension (PaO2), arterial 59.5 mmHg (80.0-100.0); Puncture Site RRA
[2022-02-17 07:50] LABS: Band 8 % (5-11); Eosinophils 1 % (0-10); Lymphocytes 11 % (21-51); MDiff Complete? YES; Monocytes 1 % (0-10); Myelocyte 1 % (0-0); Neutrophil 78 % (42-75); Platelet Morphology Comment Appears Adequate; Polychromasia SLIGHT = 2-3 cells (100X) (0-2/hpf)
[2022-02-17] MEDS: Famotidine/PF 20 mg/2ml Vial SLOW IVP SCH ×2 (08:55→20:11)
[2022-02-17] MEDS: Potassium Chloride 20 MEQ in Premix Bag 1 BAG IVPB SCH ×2 (08:55→11:18)
[2022-02-17] MEDS: Insulin Glargine 30 UNITS/0.3 ML VIAL SC SCH (09:09)
[2022-02-17] MEDS: Morphine 4 MG/ML VIAL SLOW IVP PRN ×2 (12:01→18:49)
[2022-02-17] MEDS ORDERED: Acetaminophen 650 MG/20.3 ML UDCUP PO PRN (12:38)
[2022-02-17 15:47] LABS: Potassium 3.9 mmol/L (3.5-5.1)
[2022-02-17] MEDS ORDERED: Piperacillin/Tazobactam 3.375 GM VIAL ONE (17:14)
[2022-02-17] MEDS: Haloperidol Lactate 5 MG/ML VIAL IM SCH (20:07)
[2022-02-18] MEDS: Lorazepam 2 MG/ML VIAL SLOW IVP PRN ×4 (00:56→21:11)
[2022-02-18 04:07] LABS: ALT (SGPT) 34 U/L (8-55); AST (SGOT) 31 U/L (5-34); Albumin 2.2 g/dL (3.5-5.0); Alkaline Phosphatase 143 U/L (40-110); Anion Gap 12 mmol/L (10-20); BUN (Urea Nitrogen) 11 mg/dL (8.9-20.6); Bilirubin, Total 0.4 mg/dL (0.2-1.2); Calc. Creatinine Clearance 140 mL/min (70-130); Carbon Dioxide 27 mmol/L (22-29); Chloride 106 mmol/L (98-107); Globulin 3.5 g/dL (2.4-3.5); Glucose 115 mg/dL (70-105); Potassium 3.8 mmol/L (3.5-5.1); Protein, Total 5.7 g/dL (6.0-8.3); Sodium 141 mmol/L (136-145)
[2022-02-18 04:37] LABS: Band 7 % (5-11); Lymphocytes 6 % (21-51); MDiff Complete? YES; Mean Corpuscular HGB CONC 31.6 g/dL (32.0-36.0); Mean Corpuscular Hemoglobin 31.1 pg (27.0-31.0); Mean Corpuscular Volume 98.5 fL (78.0-98.0); Mean Platelet Volume 8.6 fL (7.4-10.4); Monocytes 4 % (0-10); Myelocyte 1 % (0-0); Neutrophil 82 % (42-75); Platelet Count 389 thou/uL (130-400); RBC Distribution Width 13.9 % (11.5-14.5); Red Blood Cell (RBC) Count 3.23 mill/uL (4.70-6.10); White Blood Cell (WBC) Count 31.8 thou/uL (4.8-10.8)
[2022-02-18] MEDS: VANCOMYCIN 1.25 GM/250 ML BAG 1.25 GM in Premix Bag 1 BAG IVPB SCH ×2 (05:01→16:57)
[2022-02-18 07:41] LABS: Actual Bicarbonate (HCO3a) 27.5 mEq/L (22-28); CO2 Tension 37.9 mmHg (35.0-45.0); Calcium, Ionized (arterial) 1.11 mmol/L (1.12-1.30); Potassium - ABG Lab 3.65 mmol/L (3.70-5.30); pH, Arterial 7.48 (7.35-7.45)
[2022-02-18 07:50] LABS: O2 Tension (PaO2), arterial 59.1 mmHg (80.0-100.0)
[2022-02-18 07:51] LABS: Puncture Site RBA
[2022-02-18 07:52] LABS: ALV-art Gradient 285.675 mmHg (0-20)
[2022-02-18] MEDS: Piperacillin/Tazobactam 3.375 GM in Sodium Chloride 0.9% 100 ML IVPB SCH ×3 (09:21→21:03)
[2022-02-18] MEDS: Haloperidol Lactate 5 MG/ML VIAL IM SCH ×2 (09:21→20:21)
[2022-02-18] MEDS: Famotidine/PF 20 mg/2ml Vial SLOW IVP SCH ×2 (09:21→20:21)
[2022-02-18] MEDS: Insulin Glargine 30 UNITS/0.3 ML VIAL SC SCH (09:22)
[2022-02-18 16:25] LABS: Vancomycin, Trough 14.9 ug/mL
[2022-02-18] MEDS: fentaNYL Citrate-0.9 % NaCl/PF 100 ML IVPB SCH (21:15)
[2022-02-19] MEDS: VANCOMYCIN 1.25 GM/250 ML BAG 1.25 GM in Premix Bag 1 BAG IVPB SCH ×2 (04:18→16:26)
[2022-02-19] MEDS: Piperacillin/Tazobactam 3.375 GM in Sodium Chloride 0.9% 100 ML IVPB SCH ×3 (05:52→21:07)
[2022-02-19 07:59] LABS: ALT (SGPT) 34 U/L (8-55); AST (SGOT) 44 U/L (5-34); Albumin 2.3 g/dL (3.5-5.0); Alkaline Phosphatase 139 U/L (40-110); Anion Gap 12 mmol/L (10-20); BUN (Urea Nitrogen) 13 mg/dL (8.9-20.6); Bilirubin, Total 0.4 mg/dL (0.2-1.2); Calc. Creatinine Clearance 126 mL/min (70-130); Calcium 8.2 mg/dL (7.8-10.44); Carbon Dioxide 26 mmol/L (22-29); Chloride 106 mmol/L (98-107); Globulin 3.8 g/dL (2.4-3.5); Glucose 162 mg/dL (70-105); Protein, Total 6.1 g/dL (6.0-8.3); Sodium 141 mmol/L (136-145)
[2022-02-19 08:14] LABS: Hemoglobin 9.1 g/dL (14.0-18.0); MDiff Complete? YES; Mean Corpuscular HGB CONC 31.6 g/dL (32.0-36.0); Mean Corpuscular Hemoglobin 31.1 pg (27.0-31.0); Mean Corpuscular Volume 98.3 fL (78.0-98.0); Mean Platelet Volume 8.1 fL (7.4-10.4); Platelet Count 536 thou/uL (130-400); RBC Distribution Width 14.1 % (11.5-14.5); Red Blood Cell (RBC) Count 2.92 mill/uL (4.70-6.10); White Blood Cell (WBC) Count 31.6 thou/uL (4.8-10.8)
[2022-02-19 08:15] LABS: Band 2 % (5-11); Hypochromia SLIGHT = 6-15 cells (100X) (0-5/hpf); Lymphocytes 10 % (21-51); Monocytes 1 % (0-10); Myelocyte 1 % (0-0); Neutrophil 85 % (42-75); Platelet Morphology Comment Appears Increased; Polychromasia SLIGHT = 2-3 cells (100X) (0-2/hpf); Reactive Lymphocytes 1 % (0-10)
[2022-02-19] MEDS: Famotidine/PF 20 mg/2ml Vial SLOW IVP SCH ×2 (08:27→20:19)
[2022-02-19] MEDS: Haloperidol Lactate 5 MG/ML VIAL IM SCH ×2 (08:28→20:19)
[2022-02-19] MEDS: Insulin Glargine 30 UNITS/0.3 ML VIAL SC SCH (08:31)
[2022-02-19] MEDS: Potassium Chloride 20 MEQ in Premix Bag 1 BAG IVPB SCH ×2 (09:03→10:52)
[2022-02-19] MEDS ORDERED: Micafungin 100 MG in Sodium Chloride 0.9% 100 ML IVPB SCH ×2 (11:15→12:00)
[2022-02-19] MEDS: Doxycycline 100 MG in Sodium Chloride 0.9% 100 ML IVPB SCH (11:30)
[2022-02-19] MEDS: fentaNYL Citrate-0.9 % NaCl/PF 100 ML IVPB SCH (11:41)
[2022-02-19] MEDS: Scopolamine 1.5 mg/72 hour Patch TD SCH (16:16)
[2022-02-19] MEDS: Lorazepam 2 MG/ML VIAL SLOW IVP PRN (16:16)
[2022-02-19] MEDS ORDERED: Fentanyl BOLUS 250 ML IVPB PRN (17:33)
[2022-02-19] MEDS ORDERED: Enoxaparin Sodium 40 MG/0.4 ML SYRINGE SC SCH (21:00)
[2022-02-20] MEDS: Doxycycline 100 MG in Sodium Chloride 0.9% 100 ML IVPB SCH ×3 (00:47→23:11)
[2022-02-20] MEDS: Lorazepam 2 MG/ML VIAL SLOW IVP PRN ×2 (00:49→22:04)
[2022-02-20 04:06] LABS: #Eosinphils 0.1 thou/uL (0.0-0.7); #Lymphocytes 1.9 thou/uL (1.20-3.40); #Monocytes 1.3 thou/uL (0.11-0.59); #Neutrophils 19.9 thou/uL (1.40-6.50); %Basophils 0.1 % (0.0-1.0); %Eosinophils 0.5 % (0.0-10.0); %Lymphocytes 8.2 % (21.0-51.0); %Monocytes 5.7 % (0.0-10.0); %Neutrophils 85.5 % (42.0-75.0); Hemoglobin 7.2 g/dL (14.0-18.0); Mean Corpuscular HGB CONC 31.2 g/dL (32.0-36.0); Mean Corpuscular Hemoglobin 30.7 pg (27.0-31.0); Mean Corpuscular Volume 98.3 fL (78.0-98.0); Platelet Count 445 thou/uL (130-400); RBC Distribution Width 14.1 % (11.5-14.5); Red Blood Cell (RBC) Count 2.35 mill/uL (4.70-6.10); White Blood Cell (WBC) Count 23.3 thou/uL (4.8-10.8)
[2022-02-20 04:26] LABS: ALT (SGPT) 43 U/L (8-55); AST (SGOT) 35 U/L (5-34); Alkaline Phosphatase 179 U/L (40-110); Anion Gap 11 mmol/L (10-20); BUN (Urea Nitrogen) 15 mg/dL (8.9-20.6); Bilirubin, Total 0.3 mg/dL (0.2-1.2); Calc. Creatinine Clearance 129 mL/min (70-130); Calcium 7.7 mg/dL (7.8-10.44); Carbon Dioxide 26 mmol/L (22-29); Chloride 110 mmol/L (98-107); Globulin 3.3 g/dL (2.4-3.5); Glucose 135 mg/dL (70-105); Potassium 3.1 mmol/L (3.5-5.1); Protein, Total 5.3 g/dL (6.0-8.3); Sodium 144 mmol/L (136-145)
[2022-02-20] MEDS: VANCOMYCIN 1.25 GM/250 ML BAG 1.25 GM in Premix Bag 1 BAG IVPB SCH ×2 (04:59→16:37)
[2022-02-20] MEDS: Piperacillin/Tazobactam 3.375 GM in Sodium Chloride 0.9% 100 ML IVPB SCH ×3 (06:06→21:00)
[2022-02-20] MEDS: Potassium Chloride 20 MEQ in Premix Bag 1 BAG IVPB SCH ×2 (06:24→08:45)
[2022-02-20] MEDS: Haloperidol Lactate 5 MG/ML VIAL IM SCH ×2 (08:46→20:52)
[2022-02-20] MEDS: Famotidine/PF 20 mg/2ml Vial SLOW IVP SCH ×2 (08:46→20:52)
[2022-02-20] MEDS: Folic Acid 1 MG TAB PER TUBE SCH (08:46)
[2022-02-20] MEDS: Insulin Glargine 30 UNITS/0.3 ML VIAL SC SCH (08:46)
[2022-02-20] MEDS: Multivit, Chewable SF 1 TAB PER TUBE SCH (08:49)
[2022-02-20 09:04] LABS: Actual Bicarbonate (HCO3a) 27.5 mEq/L (22-28); Base Excess (BEa) 4.4 mEq/L (-2.0 to +3.0); CO2 Tension 34.9 mmHg (35.0-45.0); Calcium, Ionized (arterial) 1.12 mmol/L (1.12-1.30); Carboxyhemoglobin (COHb) 1.2 gm% (0.0-3.0); Hemoglobin (Hb) 8.5 g/dL (14.0-18.0); O2 Tension (PaO2), arterial 66.7 mmHg (80.0-100.0); Potassium - ABG Lab 3.31 mmol/L (3.70-5.30); pH, Arterial 7.52 (7.35-7.45)
[2022-02-20 09:05] LABS: ALV-art Gradient 210.525 mmHg (0-20); Puncture Site RBA
[2022-02-20] MEDS: Micafungin 100 MG in Sodium Chloride 0.9% 100 ML IVPB SCH (13:50)
[2022-02-20 13:55] LABS: Hemoglobin 7.9 g/dL (14.0-18.0)
[2022-02-20] MEDS ORDERED: Racepinephrine 2.25% 0.5 ML NEB ONE (16:34)
[2022-02-21 03:56] LABS: #Eosinphils 0.2 thou/uL (0.0-0.7); #Lymphocytes 1.9 thou/uL (1.20-3.40); #Monocytes 1.4 thou/uL (0.11-0.59); %Basophils 0.1 % (0.0-1.0); %Eosinophils 0.6 % (0.0-10.0); %Lymphocytes 7.3 % (21.0-51.0); %Monocytes 5.4 % (0.0-10.0); %Neutrophils 86.6 % (42.0-75.0); Hemoglobin 7.6 g/dL (14.0-18.0); Mean Corpuscular HGB CONC 31.6 g/dL (32.0-36.0); Mean Corpuscular Hemoglobin 31.2 pg (27.0-31.0); Mean Corpuscular Volume 98.7 fL (78.0-98.0); Mean Platelet Volume 7.9 fL (7.4-10.4); Platelet Count 479 thou/uL (130-400); RBC Distribution Width 14.6 % (11.5-14.5); Red Blood Cell (RBC) Count 2.45 mill/uL (4.70-6.10); White Blood Cell (WBC) Count 25.4 thou/uL (4.8-10.8)
[2022-02-21] MEDS: VANCOMYCIN 1.25 GM/250 ML BAG 1.25 GM in Premix Bag 1 BAG IVPB SCH ×2 (04:09→16:31)
[2022-02-21 04:14] LABS: Hemoglobin A1c 5.4 % (4.0-6.0)
[2022-02-21 04:29] LABS: ALT (SGPT) 43 U/L (8-55); AST (SGOT) 28 U/L (5-34); Albumin 2.2 g/dL (3.5-5.0); Alkaline Phosphatase 245 U/L (40-110); Anion Gap 11 mmol/L (10-20); BUN (Urea Nitrogen) 19 mg/dL (8.9-20.6); Bilirubin, Total 0.3 mg/dL (0.2-1.2); Calc. Creatinine Clearance 115 mL/min (70-130); Calcium 8.2 mg/dL (7.8-10.44); Carbon Dioxide 27 mmol/L (22-29); Chloride 110 mmol/L (98-107); Globulin 3.8 g/dL (2.4-3.5); Glucose 142 mg/dL (70-105); Magnesium 1.9 mg/dL (1.6-2.6); Potassium 3.3 mmol/L (3.5-5.1); Sodium 145 mmol/L (136-145)
[2022-02-21] MEDS: Piperacillin/Tazobactam 3.375 GM in Sodium Chloride 0.9% 100 ML IVPB SCH ×3 (06:21→22:02)
[2022-02-21] MEDS: Potassium Chloride 20 MEQ in Premix Bag 1 BAG IVPB SCH ×2 (06:34→09:44)
[2022-02-21 07:13] LABS: Actual Bicarbonate (HCO3a) 26.4 mEq/L (22-28); Base Excess (BEa) 2.4 mEq/L (-2.0 to +3.0); Calcium, Ionized (arterial) 1.17 mmol/L (1.12-1.30); Carboxyhemoglobin (COHb) 0.8 gm% (0.0-3.0); Hemoglobin (Hb) 8.4 g/dL (14.0-18.0); O2 Tension (PaO2), arterial 70.3 mmHg (80.0-100.0); pH, Arterial 7.46 (7.35-7.45)
[2022-02-21 07:24] LABS: Puncture Site RBA
[2022-02-21] MEDS ORDERED: Magnesium 2 GM/50 ML(in water) 2 GM in Premix Bag 1 BAG IVPB SCH (08:00)
[2022-02-21] MEDS: Folic Acid 1 MG TAB PER TUBE SCH (09:45)
[2022-02-21] MEDS: Haloperidol Lactate 5 MG/ML VIAL IM SCH ×2 (09:45→20:27)
[2022-02-21] MEDS: Famotidine/PF 20 mg/2ml Vial SLOW IVP SCH ×2 (09:45→20:27)
[2022-02-21] MEDS: Multivit, Chewable SF 1 TAB PER TUBE SCH (10:39)
[2022-02-21] MEDS ORDERED: Dexamethasone 10 MG/ML VIAL SLOW IVP SCH (11:00)
[2022-02-21] MEDS: Micafungin 100 MG in Sodium Chloride 0.9% 100 ML IVPB SCH (12:08)
[2022-02-21] MEDS: Insulin Glargine 30 UNITS/0.3 ML VIAL SC SCH (12:30)
[2022-02-21 16:29] LABS: Potassium 4.1 mmol/L (3.5-5.1)
[2022-02-21] MEDS: Insulin Regular 300 UNITS/3 ML VIAL SC PRN ×2 (17:17→22:07)
[2022-02-22 04:08] LABS: #Eosinphils 0.1 thou/uL (0.0-0.7); #Lymphocytes 2.3 thou/uL (1.20-3.40); #Monocytes 1.8 thou/uL (0.11-0.59); #Neutrophils 21.8 thou/uL (1.40-6.50); %Basophils 0.1 % (0.0-1.0); %Eosinophils 0.3 % (0.0-10.0); %Lymphocytes 8.9 % (21.0-51.0); %Neutrophils 83.7 % (42.0-75.0); Hemoglobin 7.8 g/dL (14.0-18.0); Mean Corpuscular HGB CONC 32.8 g/dL (32.0-36.0); Mean Corpuscular Hemoglobin 32.3 pg (27.0-31.0); Mean Corpuscular Volume 98.7 fL (78.0-98.0); Mean Platelet Volume 8.4 fL (7.4-10.4); Platelet Count 515 thou/uL (130-400); RBC Distribution Width 14.9 % (11.5-14.5); Red Blood Cell (RBC) Count 2.42 mill/uL (4.70-6.10)
[2022-02-22] MEDS: VANCOMYCIN 1.25 GM/250 ML BAG 1.25 GM in Premix Bag 1 BAG IVPB SCH ×2 (04:31→17:53)
[2022-02-22] MEDS: Insulin Regular 300 UNITS/3 ML VIAL SC PRN (04:33)
[2022-02-22 04:34] LABS: ALT (SGPT) 41 U/L (8-55); AST (SGOT) 29 U/L (5-34); Albumin 2.3 g/dL (3.5-5.0); Alkaline Phosphatase 223 U/L (40-110); Anion Gap 12 mmol/L (10-20); BUN (Urea Nitrogen) 24 mg/dL (8.9-20.6); Bilirubin, Total 0.2 mg/dL (0.2-1.2); Calc. Creatinine Clearance 116 mL/min (70-130); Calcium 8.5 mg/dL (7.8-10.44); Carbon Dioxide 26 mmol/L (22-29); Chloride 111 mmol/L (98-107); Globulin 3.8 g/dL (2.4-3.5); Glucose 152 mg/dL (70-105); Protein, Total 6.1 g/dL (6.0-8.3); Sodium 145 mmol/L (136-145)
[2022-02-22] MEDS: Piperacillin/Tazobactam 3.375 GM in Sodium Chloride 0.9% 100 ML IVPB SCH ×3 (06:40→21:33)
[2022-02-22 07:03] LABS: Actual Bicarbonate (HCO3a) 25.8 mEq/L (22-28); Base Excess (BEa) 1.3 mEq/L (-2.0 to +3.0); Calcium, Ionized (arterial) 1.19 mmol/L (1.12-1.30); Carboxyhemoglobin (COHb) 1.1 gm% (0.0-3.0); Hemoglobin (Hb) 8.3 g/dL (14.0-18.0); O2 Tension (PaO2), arterial 66.6 mmHg (80.0-100.0); Potassium - ABG Lab 3.59 mmol/L (3.70-5.30); pH, Arterial 7.43 (7.35-7.45)
[2022-02-22 07:07] LABS: Puncture Site RRA
[2022-02-22] MEDS: Haloperidol Lactate 5 MG/ML VIAL IM SCH ×2 (09:08→21:33)
[2022-02-22] MEDS: Multivit, Chewable SF 1 TAB PER TUBE SCH (09:08)
[2022-02-22] MEDS: Famotidine/PF 20 mg/2ml Vial SLOW IVP SCH ×2 (09:08→23:05)
[2022-02-22] MEDS: Folic Acid 1 MG TAB PER TUBE SCH (09:08)
[2022-02-22] MEDS: Dexamethasone 10 MG/ML VIAL SLOW IVP SCH (09:08)
[2022-02-22] MEDS: Lorazepam 2 MG/ML VIAL SLOW IVP PRN ×2 (11:03→16:16)
[2022-02-22] MEDS ORDERED: Midazolam HCl 2 mg/2 ml Vial ONE ×2 (12:10→12:51)
[2022-02-22] MEDS ORDERED: Fentanyl 100 MCG/2 ML VIAL ONE ×3 (12:11→13:06)
[2022-02-22] MEDS ORDERED: Vecuronium 10 MG VIAL ONE (12:26)
[2022-02-22] MEDS ORDERED: Lidocaine 1% PF 5 ML VIAL NERVE BLCK SCH (12:30)
[2022-02-22] MEDS ORDERED: CEFAZOLIN 2 GM in Sodium Chloride 0.9% 100 ML IVPB SCH (12:45)
[2022-02-22] MEDS ORDERED: Fentanyl 100 MCG/2 ML VIAL SLOW IVP SCH ×2 (13:15→13:45)
[2022-02-22] MEDS ORDERED: Vecuronium 10 MG VIAL IV SCH (13:15)
[2022-02-22] MEDS ORDERED: Midazolam HCl 2 mg/2 ml Vial IVP SCH ×2 (13:15→13:45)
[2022-02-22] MEDS: Micafungin 100 MG in Sodium Chloride 0.9% 100 ML IVPB SCH (13:45)
[2022-02-22] MEDS: fentaNYL Citrate-0.9 % NaCl/PF 100 ML IVPB SCH (14:32)
[2022-02-22] MEDS: Scopolamine 1.5 mg/72 hour Patch TD SCH (14:38)
[2022-02-22] MEDS ORDERED: Lidocaine 1%/Epinephrine 1:100K 10 ML VIAL FS SCH (15:00)
[2022-02-23] MEDS: Lorazepam 2 MG/ML VIAL SLOW IVP PRN (02:38)
[2022-02-23 04:05] LABS: #Eosinphils 0.1 thou/uL (0.0-0.7); #Lymphocytes 2.1 thou/uL (1.20-3.40); #Monocytes 1.4 thou/uL (0.11-0.59); #Neutrophils 14.9 thou/uL (1.40-6.50); %Eosinophils 0.3 % (0.0-10.0); %Lymphocytes 11.3 % (21.0-51.0); %Monocytes 7.8 % (0.0-10.0); %Neutrophils 80.6 % (42.0-75.0); Hemoglobin 8.2 g/dL (14.0-18.0); Mean Corpuscular HGB CONC 29.9 g/dL (32.0-36.0); Mean Corpuscular Hemoglobin 30.4 pg (27.0-31.0); Mean Platelet Volume 8.5 fL (7.4-10.4); Platelet Count 459 thou/uL (130-400); RBC Distribution Width 15.4 % (11.5-14.5); Red Blood Cell (RBC) Count 2.71 mill/uL (4.70-6.10); White Blood Cell (WBC) Count 18.5 thou/uL (4.8-10.8)
[2022-02-23 04:28] LABS: ALT (SGPT) 36 U/L (8-55); AST (SGOT) 21 U/L (5-34); Albumin 2.2 g/dL (3.5-5.0); Alkaline Phosphatase 188 U/L (40-110); Anion Gap 12 mmol/L (10-20); BUN (Urea Nitrogen) 23 mg/dL (8.9-20.6); Bilirubin, Total 0.3 mg/dL (0.2-1.2); Calc. Creatinine Clearance 118 mL/min (70-130); Calcium 8.2 mg/dL (7.8-10.44); Carbon Dioxide 25 mmol/L (22-29); Chloride 113 mmol/L (98-107); Globulin 3.8 g/dL (2.4-3.5); Glucose 104 mg/dL (70-105); Potassium 4.3 mmol/L (3.5-5.1); Sodium 146 mmol/L (136-145)
[2022-02-23] MEDS ORDERED: Vancomycin 1 GM in Premix Bag 1 BAG IVPB SCH (05:00)
[2022-02-23] MEDS: Piperacillin/Tazobactam 3.375 GM in Sodium Chloride 0.9% 100 ML IVPB SCH ×3 (05:37→22:21)
[2022-02-23] MEDS ORDERED: Famotidine 20 MG TAB PER TUBE SCH (09:30)
[2022-02-23] MEDS: Dexamethasone 10 MG/ML VIAL SLOW IVP SCH (09:33)
[2022-02-23] MEDS: Multivit, Chewable SF 1 TAB PER TUBE SCH (09:33)
[2022-02-23] MEDS: Enoxaparin Sodium 40 MG/0.4 ML SYRINGE SC SCH (09:33)
[2022-02-23] MEDS: Folic Acid 1 MG TAB PER TUBE SCH (09:36)
[2022-02-23] MEDS: Famotidine/PF 20 mg/2ml Vial SLOW IVP SCH (11:20)
[2022-02-23] MEDS: Micafungin 100 MG in Sodium Chloride 0.9% 100 ML IVPB SCH (11:20)
[2022-02-23] MEDS: Insulin Regular 300 UNITS/3 ML VIAL SC PRN (16:05)
[2022-02-23] MEDS: Morphine 4 MG/ML VIAL SLOW IVP PRN (20:57)
[2022-02-23] MEDS: Famotidine 20 MG TAB PER TUBE SCH (21:02)
[2022-02-24] MEDS: Morphine 4 MG/ML VIAL SLOW IVP PRN (02:41)
[2022-02-24 05:18] LABS: ALT (SGPT) 30 U/L (8-55); AST (SGOT) 24 U/L (5-34); Albumin 2.4 g/dL (3.5-5.0); Alkaline Phosphatase 155 U/L (40-110); Anion Gap 11 mmol/L (10-20); BUN (Urea Nitrogen) 20 mg/dL (8.9-20.6); Bilirubin, Total 0.3 mg/dL (0.2-1.2); Calc. Creatinine Clearance 124 mL/min (70-130); Calcium 8.5 mg/dL (7.8-10.44); Carbon Dioxide 31 mmol/L (22-29); Chloride 108 mmol/L (98-107); Globulin 3.8 g/dL (2.4-3.5); Glucose 153 mg/dL (70-105); Potassium 3.1 mmol/L (3.5-5.1); Protein, Total 6.2 g/dL (6.0-8.3); Sodium 147 mmol/L (136-145)
[2022-02-24 05:23] LABS: Band 19 % (5-11); Hemoglobin 7.8 g/dL (14.0-18.0); Hypochromia SLIGHT = 6-15 cells (100X) (0-5/hpf); Lymphocytes 8 % (21-51); MDiff Complete? YES; Mean Corpuscular HGB CONC 31.3 g/dL (32.0-36.0); Mean Corpuscular Hemoglobin 31.6 pg (27.0-31.0); Mean Platelet Volume 8.1 fL (7.4-10.4); Monocytes 11 % (0-10); Neutrophil 62 % (42-75); Platelet Count 466 thou/uL (130-400); Platelet Morphology Comment Appears Increased; RBC Distribution Width 15.4 % (11.5-14.5); Red Blood Cell (RBC) Count 2.45 mill/uL (4.70-6.10); White Blood Cell (WBC) Count 27.7 thou/uL (4.8-10.8)
[2022-02-24] MEDS: Piperacillin/Tazobactam 3.375 GM in Sodium Chloride 0.9% 100 ML IVPB SCH (05:47)
[2022-02-24] MEDS: Potassium Chloride 20 MEQ in Premix Bag 1 BAG IVPB SCH ×2 (09:36→11:51)
[2022-02-24] MEDS: Enoxaparin Sodium 40 MG/0.4 ML SYRINGE SC SCH (09:37)
[2022-02-24] MEDS: Multivit, Chewable SF 1 TAB PER TUBE SCH (09:37)
[2022-02-24] MEDS: Famotidine 20 MG TAB PER TUBE SCH ×2 (09:37→20:36)
[2022-02-24] MEDS: Folic Acid 1 MG TAB PER TUBE SCH (09:37)
[2022-02-24] MEDS: Dexamethasone 10 MG/ML VIAL SLOW IVP SCH (09:42)
[2022-02-24] MEDS: Micafungin 100 MG in Sodium Chloride 0.9% 100 ML IVPB SCH (11:50)
[2022-02-24] MEDS ORDERED: Amlodipine 10 MG TAB PO SCH (12:15)
[2022-02-24] MEDS: Insulin Regular 300 UNITS/3 ML VIAL SC PRN (16:15)
[2022-02-24] MEDS: hydrALAZINE 20 MG/ML VIAL SLOW IVP PRN (17:29)
[2022-02-25] MEDS: hydrALAZINE 20 MG/ML VIAL SLOW IVP PRN ×2 (01:28→10:34)
[2022-02-25] MEDS: Lorazepam 2 MG/ML VIAL SLOW IVP PRN (01:53)
[2022-02-25 04:40] LABS: ALT (SGPT) 27 U/L (8-55); AST (SGOT) 20 U/L (5-34); Albumin 2.5 g/dL (3.5-5.0); Alkaline Phosphatase 136 U/L (40-110); Anion Gap 11 mmol/L (10-20); BUN (Urea Nitrogen) 16 mg/dL (8.9-20.6); Bilirubin, Total 0.4 mg/dL (0.2-1.2); Calc. Creatinine Clearance 147 mL/min (70-130); Calcium 8.2 mg/dL (7.8-10.44); Carbon Dioxide 29 mmol/L (22-29); Chloride 106 mmol/L (98-107); Globulin 3.8 g/dL (2.4-3.5); Glucose 169 mg/dL (70-105); Protein, Total 6.3 g/dL (6.0-8.3); Sodium 143 mmol/L (136-145)
[2022-02-25 04:49] LABS: Potassium 2.9 mmol/L (3.5-5.1)
[2022-02-25 04:56] LABS: Band 8 % (5-11); Hemoglobin 8.5 g/dL (14.0-18.0); Lymphocytes 5 % (21-51); MDiff Complete? YES; Mean Corpuscular HGB CONC 32.3 g/dL (32.0-36.0); Mean Corpuscular Hemoglobin 31.9 pg (27.0-31.0); Mean Corpuscular Volume 98.8 fL (78.0-98.0); Mean Platelet Volume 7.9 fL (7.4-10.4); Monocytes 6 % (0-10); Neutrophil 81 % (42-75); Platelet Count 474 thou/uL (130-400); Platelet Morphology Comment Appears Increased; RBC Distribution Width 15.8 % (11.5-14.5); RBC Morphology Normal; Red Blood Cell (RBC) Count 2.67 mill/uL (4.70-6.10); White Blood Cell (WBC) Count 28.7 thou/uL (4.8-10.8)
[2022-02-25] MEDS ORDERED: Potassium Chloride 20 MEQ in Premix Bag 1 BAG IVPB SCH (05:00)
[2022-02-25] MEDS: Potassium Chloride 20 MEQ in Premix Bag 1 BAG IVPB SCH ×4 (06:17→12:31)
[2022-02-25] MEDS ORDERED: Meropenem 1 GM in Sodium Chloride 0.9% 100 ML IVPB SCH ×2 (09:00→22:00)
[2022-02-25] MEDS: Amlodipine 5 MG TAB PO SCH (09:10)
[2022-02-25] MEDS: Folic Acid 1 MG TAB PER TUBE SCH (09:10)
[2022-02-25] MEDS: Famotidine 20 MG TAB PER TUBE SCH ×2 (09:10→22:17)
[2022-02-25] MEDS: Multivit, Chewable SF 1 TAB PER TUBE SCH (09:11)
[2022-02-25] MEDS: Enoxaparin Sodium 40 MG/0.4 ML SYRINGE SC SCH (09:11)
[2022-02-25] MEDS: Dexamethasone 10 MG/ML VIAL SLOW IVP SCH (09:11)
[2022-02-25] MEDS: Micafungin 100 MG in Sodium Chloride 0.9% 100 ML IVPB SCH (12:37)
[2022-02-25] MEDS: Labetalol HCl 100 MG/20 ML VIAL SLOW IVP PRN (13:25)
[2022-02-25] MEDS ORDERED: Meropenem 2 GM in Sodium Chloride 0.9% 100 ML IVPB SCH (14:00)
[2022-02-25] MEDS: Scopolamine 1.5 mg/72 hour Patch TD SCH (15:15)
[2022-02-25] MEDS: Meropenem 1 GM in Sodium Chloride 0.9% 100 ML IVPB SCH (17:52)
[2022-02-25] MEDS: Apixaban 5 MG TAB PO SCH (22:17)
[2022-02-26] MEDS: Meropenem 1 GM in Sodium Chloride 0.9% 100 ML IVPB SCH ×3 (02:13→17:30)
[2022-02-26 03:16] LABS: #Eosinphils 0.1 thou/uL (0.0-0.7); #Lymphocytes 2.3 thou/uL (1.20-3.40); #Neutrophils 20.1 thou/uL (1.40-6.50); %Basophils 0.1 % (0.0-1.0); %Eosinophils 0.6 % (0.0-10.0); %Lymphocytes 9.7 % (21.0-51.0); %Monocytes 4.3 % (0.0-10.0); %Neutrophils 85.3 % (42.0-75.0); Hemoglobin 8.7 g/dL (14.0-18.0); Mean Corpuscular HGB CONC 31.8 g/dL (32.0-36.0); Mean Platelet Volume 8.3 fL (7.4-10.4); Platelet Count 444 thou/uL (130-400); RBC Distribution Width 15.9 % (11.5-14.5); Red Blood Cell (RBC) Count 2.71 mill/uL (4.70-6.10); White Blood Cell (WBC) Count 23.5 thou/uL (4.8-10.8)
[2022-02-26 03:35] LABS: Phosphorus 3.3 mg/dL (2.3-4.7)
[2022-02-26 03:39] LABS: ALT (SGPT) 28 U/L (8-55); AST (SGOT) 20 U/L (5-34); Albumin 2.4 g/dL (3.5-5.0); Alkaline Phosphatase 119 U/L (40-110); Anion Gap 12 mmol/L (10-20); BUN (Urea Nitrogen) 17 mg/dL (8.9-20.6); Bilirubin, Total 0.3 mg/dL (0.2-1.2); Calc. Creatinine Clearance 155 mL/min (70-130); Calcium 8.4 mg/dL (7.8-10.44); Carbon Dioxide 27 mmol/L (22-29); Chloride 101 mmol/L (98-107); Globulin 3.9 g/dL (2.4-3.5); Glucose 133 mg/dL (70-105); Magnesium 1.6 mg/dL (1.6-2.6); Potassium 3.9 mmol/L (3.5-5.1); Protein, Total 6.3 g/dL (6.0-8.3); Sodium 136 mmol/L (136-145)
[2022-02-26] MEDS ORDERED: Magnesium 2 GM/50 ML(in water) 2 GM in Premix Bag 1 BAG IVPB SCH (05:00)
[2022-02-26] MEDS: Apixaban 5 MG TAB PO SCH ×2 (08:35→20:46)
[2022-02-26] MEDS: Multivit, Chewable SF 1 TAB PER TUBE SCH (08:36)
[2022-02-26] MEDS: Folic Acid 1 MG TAB PER TUBE SCH (08:36)
[2022-02-26] MEDS: Famotidine 20 MG TAB PER TUBE SCH ×2 (08:36→20:45)
[2022-02-26] MEDS: Amlodipine 5 MG TAB PO SCH (08:36)
[2022-02-26] MEDS: Micafungin 100 MG in Sodium Chloride 0.9% 100 ML IVPB SCH (11:37)
[2022-02-26] MEDS: Labetalol HCl 100 MG/20 ML VIAL SLOW IVP PRN (13:04)
[2022-02-27] MEDS: Meropenem 1 GM in Sodium Chloride 0.9% 100 ML IVPB SCH ×3 (00:31→16:41)
[2022-02-27 04:03] LABS: #Eosinphils 0.1 thou/uL (0.0-0.7); #Lymphocytes 1.4 thou/uL (1.20-3.40); #Neutrophils 19.6 thou/uL (1.40-6.50); %Eosinophils 0.5 % (0.0-10.0); %Lymphocytes 6.3 % (21.0-51.0); %Monocytes 4.4 % (0.0-10.0); %Neutrophils 88.7 % (42.0-75.0); Hemoglobin 9.8 g/dL (14.0-18.0); Mean Corpuscular HGB CONC 32.3 g/dL (32.0-36.0); Mean Corpuscular Hemoglobin 31.1 pg (27.0-31.0); Mean Corpuscular Volume 96.2 fL (78.0-98.0); Mean Platelet Volume 7.2 fL (7.4-10.4); Platelet Count 418 thou/uL (130-400); RBC Distribution Width 15.9 % (11.5-14.5); Red Blood Cell (RBC) Count 3.15 mill/uL (4.70-6.10); White Blood Cell (WBC) Count 22.1 thou/uL (4.8-10.8)
[2022-02-27 04:28] LABS: ALT (SGPT) 27 U/L (8-55); AST (SGOT) 19 U/L (5-34); Albumin 2.6 g/dL (3.5-5.0); Alkaline Phosphatase 121 U/L (40-110); Anion Gap 11 mmol/L (10-20); BUN (Urea Nitrogen) 14 mg/dL (8.9-20.6); Bilirubin, Total 0.4 mg/dL (0.2-1.2); Calc. Creatinine Clearance 145 mL/min (70-130); Calcium 8.2 mg/dL (7.8-10.44); Carbon Dioxide 31 mmol/L (22-29); Chloride 95 mmol/L (98-107); Globulin 3.9 g/dL (2.4-3.5); Glucose 156 mg/dL (70-105); Potassium 3.4 mmol/L (3.5-5.1); Protein, Total 6.5 g/dL (6.0-8.3); Sodium 134 mmol/L (136-145)
[2022-02-27] MEDS: Potassium Chloride 20 MEQ in Premix Bag 1 BAG IVPB SCH ×2 (06:25→09:28)
[2022-02-27] MEDS: Thiamine 100 MG TAB PER TUBE SCH (09:26)
[2022-02-27] MEDS: Famotidine 20 MG TAB PER TUBE SCH ×2 (09:27→20:57)
[2022-02-27] MEDS: Folic Acid 1 MG TAB PER TUBE SCH (09:27)
[2022-02-27] MEDS: Multivit, Chewable SF 1 TAB PER TUBE SCH (09:27)
[2022-02-27] MEDS: Amlodipine 5 MG TAB PO SCH (09:27)
[2022-02-27] MEDS: Apixaban 5 MG TAB PO SCH ×2 (09:27→20:57)
[2022-02-27] MEDS: Micafungin 100 MG in Sodium Chloride 0.9% 100 ML IVPB SCH (12:01)
[2022-02-27] MEDS: Labetalol HCl 100 MG/20 ML VIAL SLOW IVP PRN (22:33)
[2022-02-28] MEDS: Meropenem 1 GM in Sodium Chloride 0.9% 100 ML IVPB SCH ×3 (00:07→17:52)
[2022-02-28 05:18] LABS: ALT (SGPT) 22 U/L (8-55); AST (SGOT) 25 U/L (5-34); Albumin 2.6 g/dL (3.5-5.0); Alkaline Phosphatase 110 U/L (40-110); Anion Gap 11 mmol/L (10-20); BUN (Urea Nitrogen) 16 mg/dL (8.9-20.6); Bilirubin, Total 0.3 mg/dL (0.2-1.2); Calc. Creatinine Clearance 156 mL/min (70-130); Calcium 8.1 mg/dL (7.8-10.44); Carbon Dioxide 32 mmol/L (22-29); Chloride 93 mmol/L (98-107); Globulin 4.1 g/dL (2.4-3.5); Glucose 125 mg/dL (70-105); Potassium 3.9 mmol/L (3.5-5.1); Protein, Total 6.7 g/dL (6.0-8.3); Sodium 132 mmol/L (136-145)
[2022-02-28 06:14] LABS: Band 12 % (5-11); Hemoglobin 10.4 g/dL (14.0-18.0); Lymphocytes 7 % (21-51); MDiff Complete? YES; Mean Corpuscular HGB CONC 32.1 g/dL (32.0-36.0); Mean Corpuscular Hemoglobin 31.6 pg (27.0-31.0); Mean Corpuscular Volume 98.4 fL (78.0-98.0); Mean Platelet Volume 8.1 fL (7.4-10.4); Monocytes 1 % (0-10); Neutrophil 80 % (42-75); Platelet Count 343 thou/uL (130-400); RBC Distribution Width 15.6 % (11.5-14.5); Red Blood Cell (RBC) Count 3.29 mill/uL (4.70-6.10); White Blood Cell (WBC) Count 24.2 thou/uL (4.8-10.8)
[2022-02-28] MEDS: Amlodipine 5 MG TAB PO SCH (08:20)
[2022-02-28] MEDS: Multivit, Chewable SF 1 TAB PER TUBE SCH (08:20)
[2022-02-28] MEDS: Folic Acid 1 MG TAB PER TUBE SCH (08:20)
[2022-02-28] MEDS: Famotidine 20 MG TAB PER TUBE SCH ×2 (08:20→20:47)
[2022-02-28] MEDS: Apixaban 5 MG TAB PO SCH ×2 (08:21→20:47)
[2022-02-28] MEDS: Thiamine 100 MG TAB PER TUBE SCH (08:21)
[2022-02-28] MEDS: Micafungin 100 MG in Sodium Chloride 0.9% 100 ML IVPB SCH (10:18)
[2022-02-28] MEDS: Scopolamine 1.5 mg/72 hour Patch TD SCH (17:52)
[2022-03-01] MEDS: Meropenem 1 GM in Sodium Chloride 0.9% 100 ML IVPB SCH ×3 (01:59→18:11)
[2022-03-01 04:27] LABS: #Eosinphils 0.2 thou/uL (0.0-0.7); #Monocytes 1.4 thou/uL (0.11-0.59); #Neutrophils 16.7 thou/uL (1.40-6.50); %Basophils 0.1 % (0.0-1.0); %Lymphocytes 9.9 % (21.0-51.0); %Monocytes 6.8 % (0.0-10.0); %Neutrophils 82.4 % (42.0-75.0); Hemoglobin 9.6 g/dL (14.0-18.0); Mean Corpuscular HGB CONC 31.6 g/dL (32.0-36.0); Mean Corpuscular Hemoglobin 31.3 pg (27.0-31.0); Mean Corpuscular Volume 99.1 fL (78.0-98.0); Mean Platelet Volume 8.1 fL (7.4-10.4); Platelet Count 320 thou/uL (130-400); RBC Distribution Width 15.2 % (11.5-14.5); Red Blood Cell (RBC) Count 3.06 mill/uL (4.70-6.10); White Blood Cell (WBC) Count 20.2 thou/uL (4.8-10.8)
[2022-03-01 04:50] LABS: ALT (SGPT) 17 U/L (8-55); AST (SGOT) 15 U/L (5-34); Albumin 2.5 g/dL (3.5-5.0); Alkaline Phosphatase 104 U/L (40-110); Anion Gap 9 mmol/L (10-20); BUN (Urea Nitrogen) 14 mg/dL (8.9-20.6); Bilirubin, Total 0.2 mg/dL (0.2-1.2); Calc. Creatinine Clearance 155 mL/min (70-130); Calcium 8.5 mg/dL (7.8-10.44); Carbon Dioxide 34 mmol/L (22-29); Chloride 94 mmol/L (98-107); Globulin 3.8 g/dL (2.4-3.5); Glucose 125 mg/dL (70-105); Potassium 3.2 mmol/L (3.5-5.1); Protein, Total 6.3 g/dL (6.0-8.3); Sodium 134 mmol/L (136-145)
[2022-03-01] MEDS ORDERED: Potassium Chloride 20 MEQ TAB PO SCH (05:30)
[2022-03-01] MEDS: Multivit, Chewable SF 1 TAB PER TUBE SCH (08:01)
[2022-03-01] MEDS: Apixaban 5 MG TAB PO SCH ×2 (08:01→21:03)
[2022-03-01] MEDS: Thiamine 100 MG TAB PER TUBE SCH (08:01)
[2022-03-01] MEDS: Famotidine 20 MG TAB PER TUBE SCH ×2 (08:01→21:04)
[2022-03-01] MEDS: Amlodipine 5 MG TAB PO SCH (08:01)
[2022-03-01] MEDS: Folic Acid 1 MG TAB PER TUBE SCH (08:01)
[2022-03-01 11:51] LABS: Potassium 3.6 mmol/L (3.5-5.1)
[2022-03-01] MEDS ORDERED: Iopamidol-370 76% 500 ML 1 ML ONE (15:31)
[2022-03-01] MEDS ORDERED: GASTROGRAFIN 30 ML BOT ONE (15:31)
[2022-03-02] MEDS: Meropenem 1 GM in Sodium Chloride 0.9% 100 ML IVPB SCH ×3 (01:26→17:58)
[2022-03-02 03:45] LABS: #Eosinphils 0.4 thou/uL (0.0-0.7); #Lymphocytes 1.8 thou/uL (1.20-3.40); #Monocytes 1.6 thou/uL (0.11-0.59); #Neutrophils 15.6 thou/uL (1.40-6.50); %Basophils 0.1 % (0.0-1.0); %Eosinophils 1.9 % (0.0-10.0); %Lymphocytes 9.4 % (21.0-51.0); %Monocytes 8.2 % (0.0-10.0); %Neutrophils 80.3 % (42.0-75.0); Hemoglobin 9.9 g/dL (14.0-18.0); Mean Corpuscular HGB CONC 32.5 g/dL (32.0-36.0); Mean Corpuscular Hemoglobin 31.5 pg (27.0-31.0); Mean Corpuscular Volume 96.9 fL (78.0-98.0); Mean Platelet Volume 8.2 fL (7.4-10.4); Platelet Count 389 thou/uL (130-400); RBC Distribution Width 15.3 % (11.5-14.5); Red Blood Cell (RBC) Count 3.16 mill/uL (4.70-6.10); White Blood Cell (WBC) Count 19.4 thou/uL (4.8-10.8)
[2022-03-02 04:05] LABS: ALT (SGPT) 18 U/L (8-55); AST (SGOT) 22 U/L (5-34); Albumin 2.6 g/dL (3.5-5.0); Alkaline Phosphatase 123 U/L (40-110); Anion Gap 13 mmol/L (10-20); BUN (Urea Nitrogen) 15 mg/dL (8.9-20.6); Bilirubin, Total 0.3 mg/dL (0.2-1.2); Calc. Creatinine Clearance 143 mL/min (70-130); Calcium 8.5 mg/dL (7.8-10.44); Carbon Dioxide 32 mmol/L (22-29); Chloride 95 mmol/L (98-107); Globulin 4.2 g/dL (2.4-3.5); Glucose 120 mg/dL (70-105); Potassium 3.6 mmol/L (3.5-5.1); Protein, Total 6.8 g/dL (6.0-8.3); Sodium 136 mmol/L (136-145)
[2022-03-02] MEDS: Folic Acid 1 MG TAB PER TUBE SCH (08:06)
[2022-03-02] MEDS: Thiamine 100 MG TAB PER TUBE SCH (08:06)
[2022-03-02] MEDS: Amlodipine 5 MG TAB PO SCH (08:06)
[2022-03-02] MEDS: Multivit, Chewable SF 1 TAB PER TUBE SCH (08:06)
[2022-03-02] MEDS: Famotidine 20 MG TAB PER TUBE SCH ×2 (08:08→20:11)
[2022-03-02] MEDS: Apixaban 5 MG TAB PO SCH ×2 (08:08→20:11)
[2022-03-02 12:20] LABS: Magnesium 1.8 mg/dL (1.6-2.6)
[2022-03-02] MEDS ORDERED: Magnesium 2 GM/50 ML(in water) 2 GM in Premix Bag 1 BAG IVPB SCH (14:00)
[2022-03-02] MEDS: HYDROcodone/Acetaminophen 5/325 mg Tablet PER TUBE PRN (17:57)
[2022-03-02] MEDS: Mometasone/Formoterol 60 PUFF AER INH SCH (17:59)
[2022-03-03] MEDS: Meropenem 1 GM in Sodium Chloride 0.9% 100 ML IVPB SCH ×3 (01:10→16:25)
[2022-03-03 04:00] LABS: #Eosinphils 0.3 thou/uL (0.0-0.7); #Lymphocytes 2.1 thou/uL (1.20-3.40); #Monocytes 1.5 thou/uL (0.11-0.59); %Eosinophils 1.9 % (0.0-10.0); %Lymphocytes 12.5 % (21.0-51.0); %Monocytes 8.6 % (0.0-10.0); Hemoglobin 9.9 g/dL (14.0-18.0); Mean Corpuscular Hemoglobin 30.8 pg (27.0-31.0); Mean Corpuscular Volume 96.1 fL (78.0-98.0); Mean Platelet Volume 7.3 fL (7.4-10.4); Platelet Count 413 thou/uL (130-400); RBC Distribution Width 15.1 % (11.5-14.5); Red Blood Cell (RBC) Count 3.22 mill/uL (4.70-6.10); White Blood Cell (WBC) Count 16.9 thou/uL (4.8-10.8)
[2022-03-03 04:25] LABS: ALT (SGPT) 16 U/L (8-55); AST (SGOT) 18 U/L (5-34); Albumin 2.7 g/dL (3.5-5.0); Alkaline Phosphatase 120 U/L (40-110); Anion Gap 13 mmol/L (10-20); BUN (Urea Nitrogen) 16 mg/dL (8.9-20.6); Bilirubin, Total 0.3 mg/dL (0.2-1.2); Calc. Creatinine Clearance 136 mL/min (70-130); Calcium 8.7 mg/dL (7.8-10.44); Carbon Dioxide 32 mmol/L (22-29); Chloride 97 mmol/L (98-107); Globulin 4.2 g/dL (2.4-3.5); Glucose 116 mg/dL (70-105); Potassium 3.8 mmol/L (3.5-5.1); Protein, Total 6.9 g/dL (6.0-8.3); Sodium 138 mmol/L (136-145)
[2022-03-03] MEDS: Mometasone/Formoterol 60 PUFF AER INH SCH ×2 (08:19→17:58)
[2022-03-03] MEDS: Amlodipine 5 MG TAB PO SCH (09:29)
[2022-03-03] MEDS: Multivit, Chewable SF 1 TAB PER TUBE SCH (09:29)
[2022-03-03] MEDS: Apixaban 5 MG TAB PO SCH ×2 (09:29→20:51)
[2022-03-03] MEDS: Famotidine 20 MG TAB PER TUBE SCH ×2 (09:30→20:51)
[2022-03-03] MEDS: Thiamine 100 MG TAB PER TUBE SCH (09:30)
[2022-03-03] MEDS: Folic Acid 1 MG TAB PER TUBE SCH (09:30)
[2022-03-03] MEDS: Scopolamine 1.5 mg/72 hour Patch TD SCH (16:25)
[2022-03-04] MEDS: Meropenem 1 GM in Sodium Chloride 0.9% 100 ML IVPB SCH ×2 (00:07→10:09)
[2022-03-04] MEDS: HYDROcodone/Acetaminophen 5/325 mg Tablet PER TUBE PRN (03:11)
[2022-03-04] MEDS: Mometasone/Formoterol 60 PUFF AER INH SCH ×2 (07:49→18:20)
[2022-03-04] MEDS: Multivit, Chewable SF 1 TAB PER TUBE SCH ×2 (09:59→11:30)
[2022-03-04] MEDS: Famotidine 20 MG TAB PER TUBE SCH ×2 (10:01→21:15)
[2022-03-04] MEDS: Folic Acid 1 MG TAB PER TUBE SCH (10:01)
[2022-03-04] MEDS: Apixaban 5 MG TAB PO SCH ×2 (10:01→21:15)
[2022-03-04] MEDS: Thiamine 100 MG TAB PER TUBE SCH (10:01)
[2022-03-04] MEDS: Amlodipine 5 MG TAB PO SCH (10:02)
[2022-03-04 10:30] LABS: #Eosinphils 0.4 thou/uL (0.0-0.7); #Lymphocytes 2.3 thou/uL (1.20-3.40); #Monocytes 1.2 thou/uL (0.11-0.59); #Neutrophils 11.3 thou/uL (1.40-6.50); %Basophils 0.2 % (0.0-1.0); %Eosinophils 2.6 % (0.0-10.0); %Lymphocytes 14.9 % (21.0-51.0); %Monocytes 7.9 % (0.0-10.0); %Neutrophils 74.4 % (42.0-75.0); Mean Corpuscular HGB CONC 31.2 g/dL (32.0-36.0); Mean Corpuscular Hemoglobin 30.3 pg (27.0-31.0); Mean Corpuscular Volume 97.2 fL (78.0-98.0); Mean Platelet Volume 7.3 fL (7.4-10.4); Platelet Count 435 thou/uL (130-400); RBC Distribution Width 15.3 % (11.5-14.5); Red Blood Cell (RBC) Count 3.31 mill/uL (4.70-6.10); White Blood Cell (WBC) Count 15.2 thou/uL (4.8-10.8)
[2022-03-05] MEDS: Mometasone/Formoterol 60 PUFF AER INH SCH ×2 (07:40→18:53)
[2022-03-05] MEDS: Thiamine 100 MG TAB PER TUBE SCH (08:56)
[2022-03-05] MEDS: Apixaban 5 MG TAB PO SCH ×2 (08:56→20:12)
[2022-03-05] MEDS: Folic Acid 1 MG TAB PER TUBE SCH (08:56)
[2022-03-05] MEDS: Amlodipine 5 MG TAB PO SCH (08:57)
[2022-03-05] MEDS: Famotidine 20 MG TAB PER TUBE SCH ×2 (08:57→20:12)
[2022-03-05] MEDS: Multivit, Chewable SF 1 TAB PER TUBE SCH (08:57)
[2022-03-05] MEDS: HYDROcodone/Acetaminophen 5/325 mg Tablet PER TUBE PRN (20:12)
[2022-03-05] MEDS: Nicotine 21 MG PATCH TD SCH (22:49)
[2022-03-06] MEDS: Mometasone/Formoterol 60 PUFF AER INH SCH ×2 (06:52→19:10)
[2022-03-06] MEDS: Multivit, Chewable SF 1 TAB PER TUBE SCH (08:48)
[2022-03-06] MEDS: Amlodipine 5 MG TAB PO SCH (08:48)
[2022-03-06] MEDS: Famotidine 20 MG TAB PER TUBE SCH ×2 (08:48→21:18)
[2022-03-06] MEDS: Thiamine 100 MG TAB PER TUBE SCH (08:48)
[2022-03-06] MEDS: Folic Acid 1 MG TAB PER TUBE SCH (08:48)
[2022-03-06] MEDS: Apixaban 5 MG TAB PO SCH ×2 (08:48→21:18)
[2022-03-06] MEDS ORDERED: Nicotine 21 MG PATCH TD SCH (09:00)
[2022-03-06] MEDS: HYDROcodone/Acetaminophen 5/325 mg Tablet PER TUBE PRN ×2 (11:57→23:24)
[2022-03-06] MEDS: Scopolamine 1.5 mg/72 hour Patch TD SCH (17:06)
[2022-03-06] MEDS: Nicotine 21 MG PATCH TD SCH (21:19)
[2022-03-07] MEDS: Mometasone/Formoterol 60 PUFF AER INH SCH ×2 (06:56→19:31)
[2022-03-07] MEDS: Thiamine 100 MG TAB PER TUBE SCH (09:39)
[2022-03-07] MEDS: Apixaban 5 MG TAB PO SCH ×2 (09:39→20:44)
[2022-03-07] MEDS: Amlodipine 5 MG TAB PO SCH (09:39)
[2022-03-07] MEDS: Famotidine 20 MG TAB PER TUBE SCH ×2 (09:39→20:44)
[2022-03-07] MEDS: Folic Acid 1 MG TAB PER TUBE SCH (09:39)
[2022-03-07] MEDS: HYDROcodone/Acetaminophen 5/325 mg Tablet PER TUBE PRN (09:42)
[2022-03-07] MEDS: Multivit, Chewable SF 1 TAB PER TUBE SCH (09:43)
[2022-03-07] MEDS: Nicotine 21 MG PATCH TD SCH (21:42)
[2022-03-08] MEDS: HYDROcodone/Acetaminophen 5/325 mg Tablet PER TUBE PRN ×4 (00:02→21:47)
[2022-03-08] MEDS: Mometasone/Formoterol 60 PUFF AER INH SCH ×2 (07:10→18:34)
[2022-03-08] MEDS: Thiamine 100 MG TAB PER TUBE SCH (08:10)
[2022-03-08] MEDS: Famotidine 20 MG TAB PER TUBE SCH ×2 (08:10→21:41)
[2022-03-08] MEDS: Amlodipine 5 MG TAB PO SCH (08:11)
[2022-03-08] MEDS: Folic Acid 1 MG TAB PER TUBE SCH (08:11)
[2022-03-08] MEDS: Apixaban 5 MG TAB PO SCH ×2 (08:11→21:41)
[2022-03-08 08:18] LABS: #Basophils 0.1 thou/uL (0.0-0.2); #Eosinphils 0.4 thou/uL (0.0-0.7); #Lymphocytes 2.6 thou/uL (1.20-3.40); #Monocytes 1.2 thou/uL (0.11-0.59); #Neutrophils 7.2 thou/uL (1.40-6.50); %Basophils 0.6 % (0.0-1.0); %Eosinophils 3.2 % (0.0-10.0); %Lymphocytes 22.7 % (21.0-51.0); %Monocytes 10.6 % (0.0-10.0); %Neutrophils 62.8 % (42.0-75.0); Hemoglobin 10.4 g/dL (14.0-18.0); Mean Corpuscular HGB CONC 32.5 g/dL (32.0-36.0); Mean Corpuscular Hemoglobin 31.2 pg (27.0-31.0); Mean Corpuscular Volume 96.1 fL (78.0-98.0); Platelet Count 388 thou/uL (130-400); RBC Distribution Width 15.1 % (11.5-14.5); Red Blood Cell (RBC) Count 3.33 mill/uL (4.70-6.10); White Blood Cell (WBC) Count 11.5 thou/uL (4.8-10.8)
[2022-03-08] MEDS: Multivit, Chewable SF 1 TAB PER TUBE SCH (08:19)
[2022-03-08 08:33] LABS: Anion Gap 15 mmol/L (10-20); BUN (Urea Nitrogen) 13 mg/dL (8.9-20.6); Calc. Creatinine Clearance 123 mL/min (70-130); Calcium 9.4 mg/dL (7.8-10.44); Carbon Dioxide 27 mmol/L (22-29); Chloride 100 mmol/L (98-107); Glucose 88 mg/dL (70-105); Potassium 4.1 mmol/L (3.5-5.1); Sodium 138 mmol/L (136-145)
[2022-03-08] MEDS: Nicotine 21 MG PATCH TD SCH (21:41)
[2022-03-09] MEDS: Mometasone/Formoterol 60 PUFF AER INH SCH (07:54)
[2022-03-09] MEDS: Apixaban 5 MG TAB PO SCH (08:36)
[2022-03-09] MEDS: Multivit, Chewable SF 1 TAB PER TUBE SCH (08:36)
[2022-03-09] MEDS: Amlodipine 5 MG TAB PO SCH (08:36)
[2022-03-09] MEDS: Famotidine 20 MG TAB PER TUBE SCH (08:37)
[2022-03-09] MEDS: Thiamine 100 MG TAB PER TUBE SCH (08:37)
[2022-03-09] MEDS: Folic Acid 1 MG TAB PER TUBE SCH (08:37)
[2022-03-09] MEDS: HYDROcodone/Acetaminophen 5/325 mg Tablet PER TUBE PRN (08:38)
[2022-03-09 09:13] VITALS: BMI 17.7
[2022-03-09] MEDS: Scopolamine 1.5 mg/72 hour Patch TD SCH (14:37)
[2022-03-09 16:53] VITALS: BP 145/98; TEMP 98.3
== END 2022-03-09 16:40 | disposition home or self-care (01) | DRG 3 ==
LOC: ERS 15:26 → CCU 16:14 → SURG B 03-06 18:47
PROVIDERS: ADMIT Hospitalist; ATTEND Hospitalist
PROC: 3E03329 Introduction of Other Anti-infective into Peripheral Vein, Percutaneous Approach (ICD-10-PCS; 2022-02-06)
PROC: 5A1955Z Respiratory Ventilation, Greater than 96 Consecutive Hours (ICD-10-PCS; 2022-02-09)
PROC: 03HY32Z Insertion of Monitoring Device into Upper Artery, Percutaneous Approach (ICD-10-PCS; 2022-02-09)
PROC: 3E043XZ Introduction of Vasopressor into Central Vein, Percutaneous Approach (ICD-10-PCS; 2022-02-09)
PROC: 0BNJ0ZZ Release Left Lower Lung Lobe, Open Approach (ICD-10-PCS; principal; 2022-02-10)
PROC: 0BNG0ZZ Release Left Upper Lung Lobe, Open Approach (ICD-10-PCS; 2022-02-10)
PROC: 0BN Respiratory System, Release (ICD-10-PCS; 2022-02-10)
PROC: 0B9L0ZZ Drainage of Left Lung, Open Approach (ICD-10-PCS; 2022-02-10)
PROC: 0W9B00Z Drainage of Left Pleural Cavity with Drainage Device, Open Approach (ICD-10-PCS; 2022-02-10)
PROC: 0KQJ0ZZ Repair Left Thorax Muscle, Open Approach (ICD-10-PCS; 2022-02-16)
PROC: 0DH67UZ Insertion of Feeding Device into Stomach, Via Natural or Artificial Opening (ICD-10-PCS; 2022-02-19)
PROC: 3E0G76Z Introduction of Nutritional Substance into Upper GI, Via Natural or Artificial Opening (ICD-10-PCS; 2022-02-19)
PROC: 0B113F4 Bypass Trachea to Cutaneous with Tracheostomy Device, Percutaneous Approach (ICD-10-PCS; 2022-02-22)
PROC: 0DH63UZ Insertion of Feeding Device into Stomach, Percutaneous Approach (ICD-10-PCS; 2022-02-22)
PROC: 0B21XFZ Change Tracheostomy Device in Trachea, External Approach (ICD-10-PCS; 2022-03-04)
DX: A41.9 Sepsis, unspecified organism (principal); R65.21 Severe sepsis with septic shock; G93.41 Metabolic encephalopathy; J86.0 Pyothorax with fistula; E43 Unspecified severe protein-calorie malnutrition; J80 Acute respiratory distress syndrome; J15.4 Pneumonia due to other streptococci; J15.6 Pneumonia due to other Gram-negative bacteria; J94.8 Other specified pleural conditions; N17.9 Acute kidney failure, unspecified; J95.812 Postprocedural air leak; Z68.1 Body mass index [BMI] 19.9 or less, adult; R64 Cachexia; E87.0 Hyperosmolality and hypernatremia; I82.A11 Acute embolism and thrombosis of right axillary vein; I82.611 Acute embolism and thrombosis of superficial veins of right upper extremity; E87.3 Alkalosis; F17.210 Nicotine dependence, cigarettes, uncomplicated; F12.10 Cannabis abuse, uncomplicated; F10.10 Alcohol abuse, uncomplicated; R73.9 Hyperglycemia, unspecified; R10.9 Unspecified abdominal pain; D69.59 Other secondary thrombocytopenia; E83.42 Hypomagnesemia; D53.9 Nutritional anemia, unspecified; R00.1 Bradycardia, unspecified; Y83.8 Other surgical procedures as the cause of abnormal reaction of the patient, or of later complication, without mention of misadventure at the time of the procedure; E87.6 Hypokalemia; Z78.1 Physical restraint status; Z79.899 Other long term (current) drug therapy; Z87.01 Personal history of pneumonia (recurrent); Z87.898 Personal history of other specified conditions; Z82.49 Family history of ischemic heart disease and other diseases of the circulatory system; Z80.9 Family history of malignant neoplasm, unspecified; Z71.6 Tobacco abuse counseling
CPT/HCPCS: 31500; 31624; 36415; 36416; 36556; 36600; 51702; 70450; 71045; 71260; 74160; 80048; 80053; 80202; 80306; 82533; 82805; 83036; 83605; 83735; 84100; 84145; 85025; 85060; 85610; 85730; 86850; 86900; 86901; 87070; 87076; 87077; 87081; 87186; 87205; 93306; 94002; 94003; 94640; 94760; 96365; 96366; 96375; 96376; C1769; C1776; J0171; J0360; J0690; J1100; J1630; J1650; J1720; J1815; J2060; J2185; J2248; J2250; J2270; J2543; J2704; J3010; J3370; J3411; J3475; J3480; J3490; J7050; J7070; J7120; Q9963; Q9967; S0020; S0028

== ENCOUNTER → 2022-03-25 | Emergency (ER) | payer SELFPAY | LOC: ERS 12:12 | DX: Z53.21 Procedure and treatment not carried out due to patient leaving prior to being seen by health care provider (principal) | CPT/HCPCS: 71045 ==